=== PATIENT | male | born 1940 | race Caucasian/White ===

== ENCOUNTER 2017-04-19 14:49 | Inpatient (IN) | payer MEDICARE ==
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
--- NOTE | 2017-04-19 17:03 | XR ---
EXAMINATION TYPE: XR abdomen 2V DATE OF EXAM: 04/19/2017 4:55 PM COMPARISON: 03/08/2013 HISTORY: Weakness TECHNIQUE: 2 views FINDINGS: There is a large hiatal hernia with fluid level. Fecal pattern is normal. There is no evide nce of a mass. There is atherosclerotic vascular calcifications. There are no pathologic calcificatio ns over the kidneys. IMPRESSION: Large hiatal hernia. Nonacute abdomen. No change.
[2017-04-19 17:07] LABS: Basophils % (A) 0 %; CH 32.1; CHCM 32.6; Eosinophils % (A) 1 %; HCT 39.9 % (39.0-53.0); HDW 2.33; Luc # (Auto) 0.16; Luc % (Auto) 2; Lymphocytes # (A) 2.2 k/uL (1.0-4.8); Lymphocytes % (A) 31 %; MCH 32.4 pg (25.0-35.0); MCHC 32.7 g/dL (31.0-37.0); MCV 99.1 fL (80.0-100.0); Mean Platelet Volume 6.4; Monocytes # (A) 0.5 k/uL (0-1.0); Monocytes % (A) 8 %; Neutrophils # (A) 4.1 k/uL (1.3-7.7); Neutrophils % (A) 58 %; RBC 4.03 m/uL (4.30-5.90); RDW 13.7 % (11.5-15.5); WBC (Perox) 6.77
[2017-04-19 17:19] LABS: ALT 31 U/L (21-72); AST 25 U/L (17-59); Alkaline Phosphatase 172 U/L (38-126); Anion Gap 9 mmol/L; Blood Urea Nitrogen 24 mg/dL (9-20); Calcium 9.3 mg/dL (8.4-10.2); Carbon Dioxide 25 mmol/L (22-30); Chloride 106 mmol/L (98-107); Glucose 89 mg/dL (74-99); Magnesium 2.2 mg/dL (1.6-2.3); Non-African American GFR(MDRD) 57 (>60 ml/min/1.73 sqM); Potassium 4.7 mmol/L (3.5-5.1); Sodium 140 mmol/L (137-145); Total Bilirubin 0.7 mg/dL (0.2-1.3); Total Protein 7.5 g/dL (6.3-8.2)
[2017-04-19 17:28] LABS: Partial Thromboplastin Time 22.4 sec (22.0-30.0); Prothrombin Time 10.3 sec (9.0-12.0)
[2017-04-19 17:29] LABS: Creatine Kinase 69 U/L (55-170)
[2017-04-19 17:42] LABS: Creatine Kinase MB 1.8 ng/mL (0.0-2.4); Troponin I <0.012 ng/mL (0.000-0.034)
[2017-04-19] MEDS ORDERED: NALOXONE 0.4 MG/ML 1 ML VIAL IV PRN (18:08)
[2017-04-19] MEDS ORDERED: ACETAMINOPHEN TAB 325 MG TAB PO PRN (18:08)
[2017-04-19] MEDS ORDERED: BISMUTH SUBSALICYLATE 4,192 MG/240 ML BOTTLE PO PRN (18:10)
[2017-04-19] MEDS ORDERED: ENALAPRILAT 1.25 MG/ML 1 ML VIAL IVP PRN (19:29)
[2017-04-19] MEDS ORDERED: ENALAPRILAT 1.25 MG/ML 1 ML VIAL IVP STA (19:29)
[2017-04-19 19:46] LABS: Appearance,Urine Cloudy (Clear); Bacteria,Urine Many /hpf; Bilirubin,Urine Negative (Negative); Glucose,Urine (UA) Negative (Negative); Ketones,Urine Negative (Negative); Leukocyte Esterase,Urine Large (Negative); Mucus,Urine Rare /hpf; Nitrite,Urine Negative (Negative); PH, Urine 5.5 (5.0-8.0); Particle Count 6513; Protein,Urine Trace (Negative); RBC,Urine 16 /hpf (0-5); Specific Gravity,Urine 1.012 (1.001-1.035); UA Billing (MACRO vs. MICRO) MICRO; Urobilinogen,Urine <2.0 mg/dL (<2.0); WBC,Urine >182 /hpf (0-5)
[2017-04-19] MEDS ORDERED: cloNIDine HCL 0.1 MG TAB PO PRN (20:44)
[2017-04-19] MEDS ORDERED: ALPRAZolam 0.25 MG TAB PO PRN (20:44)
[2017-04-19 20:46] VITALS: BMI 17.9
[2017-04-19] MEDS ORDERED: LORazepam 2 MG/ML SYRINGE IV PRN (20:46)
[2017-04-19] MEDS: MELATONIN 3 MG TABLET PO SCH (22:36)
[2017-04-19] MEDS: SODIUM CHLORIDE 0.9% 1,000 ML IV SCH (22:44)
[2017-04-19] MEDS: HEPARIN SODIUM,PORCINE 5,000 UNIT/ML 1 ML VIAL SQ SCH (22:44)
--- NOTE | 2017-04-19 23:05 | HP ---
DATE OF SERVICE: 04/19/2017 CHIEF COMPLAINT: Weakness and recurrent falls. HISTORY OF PRESENT ILLNESS: This 76-year-old gentleman with a past medical history of multiple medical issues, including a history of dementia, history of UTIs, history of appendectomy, history of nicotine dependence be followed by Dr. Hernandez in the outpatient setting is complaining of increasing unsteadiness. The patient also had increasing falls recently. The patient also had abdominal distention. The patient had increased frequency of stools and because of multiple symptomatology, patient came to [facility] and was admitted. The patient is being admitted for further evaluation and treatment. There is no history of any fever or rigors. This patient is unable to give any coherent history. Most of the history taken in discussion with the staff and review of the chart and discussion with the family at the bedside. PAST MEDICAL HISTORY: Dementia, UTI, history of appendectomy, history of gait dysfunction. MEDICATIONS: 1. Tylenol 320 mg t.i.d. p.r.n. ALLERGIES: None. Family history, social history, review of systems could not be taken because of the patient's dementia and baseline mental status. Apparently, previous history of alcohol abuse is present, history of smoking. PHYSICAL EXAM: Patient is conscious, minimally verbal. Pulse is 84, blood pressure 199/109, respirations 18, temperature 97.3, pulse ox 98% on room air. HEENT: Conjunctivae normal. NECK: No jugular venous distension. CARDIOVASCULAR: S1 and S2 muffled. No S3. No S4. RESPIRATORY: Breath sounds diminished in the bases. A few scattered rhonchi. No crackles. ABDOMEN: Soft. Mild diffuse distention present. No guarding. No rigidity. Bowel sounds diminished. No ascites. LEGS: No edema. No swelling. NERVOUS SYSTEM: Higher functions as mentioned earlier. Moves all 4 limbs. Mild diffuse weakness, present. LYMPHATIC: No lymphadenopathy in the neck, axillae or groin. SKIN: No ulcer, rash or bleeding. LABS: CBC within normal limits. BUN is 24. Alk phos 172. UA shows more than 182 WBCs. Otherwise, the brain MRI from last year shows moderate cerebral atrophy and opacification of the left mastoid air cells. The abdomen x-ray shows large hiatal hernia. EKG shows ST-T changes, but no acute changes, PVCs. ASSESSMENT: 1. Possible urinary tract infection with sepsis. 2. Change in mental status, metabolic encephalopathy, acute on chronic, possibly secondary to sepsis. 3. Hypertensive urgency. 4. Gait dysfunction. 5. History of multiple falls. Rule out transient ischemic attack or cerebrovascular accident. 6. History of dementia. 7. History of recurrent urinary tract infections. 8. History of appendectomy. 9. History of nicotine dependence. 10. Remote history of ethanol. 11. Severe protein-calorie malnutrition with a body mass index of 18. 12. Abdominal distention, rule out ileus, 13. FULL CODE. RECOMMENDATIONS AND DISCUSSION: In this 76-year-old gentleman who presented with multiple complex medical issues, we will monitor the patient closely. Continue with the current medications, continue symptomatic treatment. Otherwise, I would recommend empiric antibiotics and obtain blood cultures, PT, OT evaluation, full neurovascular workup, neurology consultation. See orders for further details. PT, OT evaluation, possible ECF rehab. Guarded prognosis. Further recommendations to follow. A copy of this dictation will be forwarded to Dr. Hernandez, who is the primary physician. EVELYN
[2017-04-20] MEDS: NICOTINE 14MG/24HR PATCH TRANSDERM SCH (07:26)
[2017-04-20] MEDS: PANTOPRAZOLE 40 MG TABLET PO SCH (07:26)
[2017-04-20] MEDS: SODIUM CHLORIDE 0.9% 1,000 ML IV SCH ×2 (07:26→21:18)
[2017-04-20] MEDS: HEPARIN SODIUM,PORCINE 5,000 UNIT/ML 1 ML VIAL SQ SCH ×2 (07:26→21:18)
[2017-04-20 09:57] LABS: Basophils % (A) 0 %; CHCM 32.5; Eosinophils % (A) 0 %; HDW 2.33; HGB 11.7 gm/dL (13.0-17.5); Luc # (Auto) 0.14; Luc % (Auto) 3; Lymphocytes # (A) 1.6 k/uL (1.0-4.8); Lymphocytes % (A) 29 %; MCH 31.4 pg (25.0-35.0); MCHC 31.7 g/dL (31.0-37.0); MCV 98.8 fL (80.0-100.0); Mean Platelet Volume 6.4; Monocytes # (A) 0.3 k/uL (0-1.0); Monocytes % (A) 6 %; Neutrophils # (A) 3.3 k/uL (1.3-7.7); Neutrophils % (A) 61 %; RBC 3.74 m/uL (4.30-5.90); RDW 13.7 % (11.5-15.5); WBC 5.4 k/uL (3.8-10.6); WBC (Perox) 5.42
[2017-04-20 10:21] LABS: Anion Gap 9 mmol/L; Blood Urea Nitrogen 20 mg/dL (9-20); Calcium 8.9 mg/dL (8.4-10.2); Carbon Dioxide 21 mmol/L (22-30); Chloride 108 mmol/L (98-107); Glucose 100 mg/dL (74-99); Non-African American GFR(MDRD) >60 (>60 ml/min/1.73 sqM); Potassium 4.3 mmol/L (3.5-5.1); Sodium 138 mmol/L (137-145)
[2017-04-20] MEDS: MULTIVITAMINS, THERA 1 EACH TAB PO SCH (10:55)
[2017-04-20] MEDS: THIAMINE 100 MG TAB PO SCH (10:55)
[2017-04-20] MEDS: FOLIC ACID 1 MG TAB PO SCH (10:55)
--- NOTE | 2017-04-20 11:06 | XR ---
EXAMINATION TYPE: XR chest 1V portable DATE OF EXAM: 04/20/2017 10:59 AM COMPARISON: NONE HISTORY: Weakness TECHNIQUE: Single frontal view of the chest is obtained. FINDINGS: Curvature the spine with atherosclerotic change aorta. Heart is enlarged and there is a re trocardiac density likely related to large hiatal hernia. No overt failure or pneumothorax. No consol idation. IMPRESSION: 1. Cardiomegaly with large hiatal hernia.
--- NOTE | 2017-04-20 19:56 | P.CNNES ---
History of Present Illness Consult date: 04/20/17 Reason for Consult: Patient being evaluated for TIA and history of worsening dementia. History of Present Illness: This patient is a 76-year-old right-handed white male who apparently lives at home with his . Over the last several weeks the patient has shown increasing generalized weakness. This is lead to his unsteady gait and multiple falls. Patient appears to be malnourished and is quite weak on appearance. Due to the multiple falls his has been unable to assist him in there is no help at home. She decided to bring him to the emergency room yesterday for further evaluation. Patient was seen in the ER by Dr. Padilla. He was recommended to undergo a computed tomography scan of the brain however the refused to have this test done for the patient at this time. We were able to locate a previous MRI of the brain done on 07/05/2016 which revealed moderate cerebral atrophy. As noted the has been unable to care for him at home due to his multiple falls and worsening dementia. He is now being considered for placement into a long term facility. The patient denies any history of headaches at this time. He states he has not been eating much at home. He does appear to have some swallowing difficulties. We would recommend a speech therapy consultation for the patient for further assessment. The patient was found to have possibility of urinary tract infection and has been started on antibiotics. He does appear to have some evidence of underlying dementia which may be complicated now with a metabolic encephalopathy. We will continue close neurological follow-up with the patient. Patient is a poor historian and is hard to answer questions at this time. We will continue close neurological assessment for this patient and monitoring. His overall prognosis at this time remains very guarded. Neurology is now been consulted for further evaluation and recommendations. Review of Systems Constitutional: Denies chills, Denies fever Eyes: denies blurred vision, denies pain Ears, nose, mouth and throat: Denies headache, Denies sore throat Cardiovascular: Denies chest pain, Denies shortness of breath Respiratory: Denies cough Gastrointestinal: Denies abdominal pain, Denies diarrhea, Denies nausea, Denies vomiting Musculoskeletal: Denies myalgias Integumentary: Denies pruritus, Denies rash Neurological: Reports change in mentation, Reports confusion, Reports memory loss, Denies numbness, Denies weakness Psychiatric: Reports confusion, Reports disorientation, Denies anxiety, Denies depression Endocrine: Denies fatigue, Denies weight change Past Medical History Past Medical History: Dementia Additional Past Medical History / Comment(s): UTI, hepatitis B 40 years ago, non verbal 4 years, colonoscopies, incontinence, diverticulitis, urinary retention History of Any Multi-Drug Resistant Organisms: None Reported Past Surgical History: Appendectomy, Bladder Surgery Past Psychological History: No Psychological Hx Reported Smoking Status: Former smoker Past Alcohol Use History: Abuse Past Drug Use History: None Reported Medications and Allergies Home Medications Medication Instructions Recorded Confirmed Type Acetaminophen Tab [Tylenol Tab] 325 mg PO TID PRN 04/19/17 04/19/17 History Bismuth Subsalicylate 15 mg PO TID PRN 04/19/17 04/19/17 History [Pepto-Bismol] Allergies Allergy/AdvReac Type Severity Reaction Status Date / Time No Known Allergies Allergy Verified 04/19/17 16:27 Physical Examination - Vital Signs Vital Signs: Vital Signs Temp Pulse Pulse Pulse Resp BP BP 04/20/17 15:00 97.7 F 83 20 143/75 04/20/17 07:00 96.9 F L 78 20 142/83 04/19/17 23:00 96.8 F L 86 18 142/76 04/19/17 20:15 97.4 F L 81 18 143/82 04/19/17 19:25 97.3 F L 84 18 191/109 04/19/17 18:34 98.1 F 87 18 181/84 Pulse Ox 04/20/17 15:00 95 04/20/17 07:00 96 04/19/17 23:00 96 04/19/17 20:15 98 04/19/17 19:25 98 04/19/17 18:34 98 Intake and Output 04/20/17 04/20/17 04/20/17 06:59 14:59 22:59 Intake Total 240 Balance 240 Intake: Oral 240 Other: Voiding Method Incontinent Incontinent # Voids 2 2 1 # Bowel Movements 2 1 - Constitutional General appearance: average body habitus, cooperative - EENT EENT: PERRL - Respiratory Respiratory: lungs clear, normal breath sounds - Cardiovascular Cardiovascular: regular rate, normal S1, normal S2 Extremities: no peripheral edema bilaterally - Gastrointestinal Gastrointestinal: normoactive bowel sounds - Integumentary Integumentary: normal - Neurologic Detailed sensory examination: intact Reflex and gait examination: intact Reflexes: 1+: ankle, bicep, knee, tricep - Musculoskeletal Musculoskeletal: no pain - Psychiatric Psychiatric: mood/affect appropriate, cooperative Results - Laboratory Findings CBC and BMP: 04/20/17 09:28 04/20/17 09:28 Abnormal Lab Findings: Abnormal Labs 04/19/17 04/19/17 04/19/17 16:30 16:30 19:20 RBC 4.03 L Hgb Hct Chloride Carbon Dioxide BUN 24 H Glucose Alkaline Phosphatase 172 H Urine Protein Trace H Urine Blood Small H Ur Leukocyte Esterase Large H Urine RBC 16 H Urine WBC >182 H Urine WBC Clumps Moderate H Urine Bacteria Many H Urine Mucus Rare H 04/20/17 04/20/17 09:28 09:28 RBC 3.74 L Hgb 11.7 L Hct 37.0 L Chloride 108 H Carbon Dioxide 21 L BUN Glucose 100 H Alkaline Phosphatase Urine Protein Urine Blood Ur Leukocyte Esterase Urine RBC Urine WBC Urine WBC Clumps Urine Bacteria Urine Mucus Assessment and Plan (1) Acute metabolic encephalopathy Status: Acute Code(s): G93.41 - METABOLIC ENCEPHALOPATHY (2) History of dementia Status: Acute Code(s): Z86.59 - PERSONAL HISTORY OF OTHER MENTAL AND BEHAVIORAL DISORDERS (3) Urinary tract infection Status: Acute Code(s): N39.0 - URINARY TRACT INFECTION, SITE NOT SPECIFIED (4) Multiple falls Status: Acute Code(s): R29.6 - REPEATED FALLS (5) Weakness Status: Acute Code(s): R53.1 - WEAKNESS Plan: This patient is a 76-year-old right-handed white male who was admitted to hospital due to generalized weakness and recurrent falls. His has been unable to care for him as he is having multiple falls and worsening dementia symptoms. He has been admitted for placement into a long term at this time. Patient apparently shows worsening dementia over the last several months. does not want any imaging study done at this time such as computed tomography scan of the brain as she feels this is not going to change his outcome. She refused computed tomography scan of the brain to be done in the emergency room by Dr. Deras. The patient remains quite confused and slow to answer. He does appear to have some difficulty with swallowing and we have recommended a speech therapy consultation. He appears to have some poor nutritional status as well possibly due to swallowing deficit. He is to be evaluated for possibility of TIA versus stroke. This is limited as the has refused to have a computed tomography scan of the brain done today to rule out acute stroke. Apparently she would like to move forward with possible placement of this patient into a long term facility. He may also benefit from inpatient rehab. We will need to see his progress over the next few days. The patient does have evidence of a metabolic encephalopathy secondary to urinary tract infection. We will continue him on his current antibiotics. His overall prognosis at this time remains very guarded. Time with Patient: Greater than 30
--- NOTE | 2017-04-20 20:01 | PN ---
DATE OF SERVICE: 04/20/2017 This 70 -year-old gentleman admitted with weakness multiple falls also had possible urinary tract infection with sepsis also. The patient is still confused. No chest pain. No palpitation. No fever. On exam, pulse 83, blood pressure 143/75. Respiratory rate 20. Temperature 97.7, pulse ox 95% on room air. HEENT: Conjunctivae normal. NECK: No jugular venous distention. CARDIOVASCULAR: S1, S2 muffled. RESPIRATORY: Breath sounds diminished at the bases. A few rhonchi. No crackles. ABDOMEN: Soft, nontender. No mass palpable. LEGS: No edema. No swelling. CENTRAL NERVOUS SYSTEM: Diffusely weak. LABS: WBC 5.5, hemoglobin 11.7. UA noted. Cultures are pending at this time. ASSESSMENT: 1. Possible urinary tract infection with sepsis, present on admission. 2. Change in mental status, metabolic encephalopathy, acute on chronic possibly secondary to sepsis. 3. Hypertensive urgency. 4. Gait dysfunction multifactorial. 5. History of multiple falls. 6. Rule out transient ischemic attack or cerebrovascular accident. 7. History of dementia. 8. History of recurrent urinary tract infections. 9. History of appendectomy. 10. History of nicotine dependence. 11. Remote history of ETOH. 12. Severe protein calorie malnutrition with body mass index of 18. 13. Abdominal distention, possibly ileus. 14. FULL CODE. RECOMMENDATIONS AND DISCUSSION: Recommend to continue current medications. Continue to monitor. Symptomatic treatment. Otherwise, at this time I will recommend follow the patient closely and continue antibiotics. PT, OT evaluation possible ECF rehab. Guarded prognosis. Further recommendations to follow.
[2017-04-20] MEDS: MELATONIN 3 MG TABLET PO SCH (21:18)
[2017-04-21] MEDS: PANTOPRAZOLE 40 MG TABLET PO SCH (07:39)
[2017-04-21] MEDS: HEPARIN SODIUM,PORCINE 5,000 UNIT/ML 1 ML VIAL SQ SCH ×2 (07:39→21:02)
[2017-04-21] MEDS: NICOTINE 14MG/24HR PATCH TRANSDERM SCH (07:39)
[2017-04-21] MEDS: SODIUM CHLORIDE 0.9% 1,000 ML IV SCH ×2 (07:39→21:02)
[2017-04-21 10:33] LABS: Anion Gap 8 mmol/L; Blood Urea Nitrogen 20 mg/dL (9-20); Calcium 9.1 mg/dL (8.4-10.2); Carbon Dioxide 22 mmol/L (22-30); Chloride 109 mmol/L (98-107); Glucose 130 mg/dL (74-99); Non-African American GFR(MDRD) 59 (>60 ml/min/1.73 sqM); Potassium 4.4 mmol/L (3.5-5.1); Sodium 139 mmol/L (137-145)
[2017-04-21 10:38] LABS: Basophils % (A) 0 %; CH 31.7; CHCM 32.2; Eosinophils % (A) 0 %; HCT 38.1 % (39.0-53.0); HDW 2.32; HGB 12.3 gm/dL (13.0-17.5); Luc # (Auto) 0.11; Luc % (Auto) 2; Lymphocytes # (A) 1.5 k/uL (1.0-4.8); Lymphocytes % (A) 26 %; MCH 32.1 pg (25.0-35.0); MCHC 32.4 g/dL (31.0-37.0); Mean Platelet Volume 6.5; Monocytes # (A) 0.4 k/uL (0-1.0); Monocytes % (A) 7 %; Neutrophils # (A) 3.7 k/uL (1.3-7.7); Neutrophils % (A) 65 %; RBC 3.85 m/uL (4.30-5.90); RDW 13.7 % (11.5-15.5); WBC 5.8 k/uL (3.8-10.6); WBC (Perox) 5.54
[2017-04-21] MEDS: THIAMINE 100 MG TAB PO SCH (11:04)
[2017-04-21] MEDS: MULTIVITAMINS, THERA 1 EACH TAB PO SCH (11:05)
[2017-04-21] MEDS: HYDROcodone/APAP 5-325MG 1 EACH TAB PO PRN (11:05)
[2017-04-21] MEDS: FOLIC ACID 1 MG TAB PO SCH (11:05)
--- NOTE | 2017-04-21 20:45 | PN ---
DATE OF SERVICE: 04/21/2017 This 76-year-old gentleman who was admitted with possible UTI and sepsis is being closely monitored. No chest pain. No palpitation. No fever. Sensorium is minimally improved. Patient is more comfortable. On exam, pulse 91, blood pressure 132/74, respiration 16, temperature 96.5, pulse ox 95% on room air. Patient continues to be minimally verbal. HEENT: Oral mucosa moist. NECK: No jugular venous distention. No carotid bruit. No lymph node enlargement. CARDIOVASCULAR SYSTEM: S1, S2 muffled. No S3. No S4. RESPIRATORY SYSTEM: Breath sounds diminished at the bases. No rhonchi. No crackles. ABDOMEN: Soft, non-tender. LEGS: No edema. No swelling. NERVOUS SYSTEM: Diffusely weak. Labs at this time show WBC 5.8, hemoglobin 12.3. ASSESSMENT: 1. Possible urinary tract infection with sepsis, present on admission. 2. Change in mental status, metabolic encephalopathy, acute on chronic, possibly secondary to sepsis. 3. Hypertensive urgency. 4. Gait dysfunction, multifactorial. 5. History of multiple falls. 6. Rule out transient ischemic attack, cerebrovascular accident. 7. History of dementia. 8. History of recurrent urinary tract infection. 9. History of appendectomy. 10. History of nicotine dependence. 11. Remote history of ethanol. 12. Severe protein-calorie malnutrition with a body mass index of 18. 13. Abdominal distention, possible ileus. 14. FULL CODE. RECOMMENDATIONS AND DISCUSSION: I recommend to continue with the current medications, continue with symptomatic treatment. Otherwise, closely follow. Increase ambulation. Continue the antibiotics. Guarded prognosis because of multiple complex medical issues. Further recommendations to follow.
[2017-04-21] MEDS: MELATONIN 3 MG TABLET PO SCH (21:02)
--- NOTE | 2017-04-21 21:35 | P.PN ---
Subjective This patient is a 70-year-old woman who was admitted to Hospital with symptoms of multiple falls and urinary tract infection. Patient has history of underlying dementia. He apparently was living at home with his and his has had great difficulty managing him due to the multiple falls and unsteady gait He appears to be quite malnourished as well. We have awaiting further recommendations from speech pathology. Patient has no significant changes in his neurological findings from yesterday. According to the nursing staff he has remained relatively stable today. He is slightly more interactive with the nursing staff. He underwent a routine EEG today which is reviewed and is moderately slow which would be consistent with a moderate degree of underlying dementia. We will continue close neurological follow-up with the patient. According to the nursing staff social work is helping to make arrangements for ECF placement. His overall prognosis at this time remains guarded. Objective - Vital Signs Vital signs: Vital Signs Temp 96.5 F L 04/21/17 15:00 Pulse 91 04/21/17 15:00 Resp 16 04/21/17 15:00 BP 132/74 04/21/17 15:00 Pulse Ox 95 04/21/17 15:00 Intake & Output 04/21/17 04/21/17 04/22/17 06:59 18:59 06:59 Intake Total 800 Balance 800 Weight 52 kg Intake: Oral 800 Other: Voiding Method Incontinent Incontinent # Voids 2 3 # Bowel Movements 1 1 - Exam Physical examination: PHYSICAL EXAMINATION: Patient is resting comfortably in bed. VITAL SIGNS: Blood pressure is [132/74]. Heart rate is [91]. Respiration is [16] . Temperature is [96.5]. HEENT: Head is atraumatic, neck is supple, there were no carotid bruits. CHEST: Lungs are clear to auscultation and percussion. CARDIAC: S1, S2 normal rate and rhythm. There is no murmur. ABDOMEN: Soft and nontender. Bowel sounds are present. EXTREMITIES: There is no pedal edema. Peripheral pulses are present. Neurological examination: Patient's neurological examinations unchanged from yesterday. - Labs CBC & Chem 7: 04/21/17 09:59 04/21/17 09:59 Labs: Abnormal Lab Results - Last 24 Hours (Table) 04/21/17 04/21/17 Range/Units 09:59 09:59 RBC 3.85 L (4.30-5.90) m/uL Hgb 12.3 L (13.0-17.5) gm/dL Hct 38.1 L (39.0-53.0) % Chloride 109 H (98-107) mmol/L Glucose 130 H (74-99) mg/dL Microbiology - Last 24 Hours (Table) 04/19/17 19:20 Urine Culture - Final Urine,Voided 04/19/17 21:18 Blood Culture - Preliminary Blood No Growth after 24 hours Assessment and Plan (1) Acute metabolic encephalopathy Status: Acute Code(s): G93.41 - METABOLIC ENCEPHALOPATHY (2) History of dementia Status: Acute Code(s): Z86.59 - PERSONAL HISTORY OF OTHER MENTAL AND BEHAVIORAL DISORDERS (3) Urinary tract infection Status: Acute Code(s): N39.0 - URINARY TRACT INFECTION, SITE NOT SPECIFIED (4) Multiple falls Status: Acute Code(s): R29.6 - REPEATED FALLS (5) Weakness Status: Acute Code(s): R53.1 - WEAKNESS Plan: This patient is a 76-year-old male being treated for multiple falls and history of dementia. He was found on admission to have a urinary tract infection possibly contributing to his generalized medical debility and weakness. His has been unable to care for him at home and is now seeking ECF placement. Patient underwent a EEG today which was reviewed and is moderately slow in a diffuse manner. This would be consistent with his known history of dementia. Patient does follow simple commands. He does answer questions but very slowly. We will continue close neurological follow-up of this patient during this admission. His overall prognosis remains guarded.
[2017-04-22 08:29] LABS: Basophils % (A) 0 %; CHCM 33.4; Eosinophils % (A) 1 %; HCT 37.4 % (39.0-53.0); HDW 2.49; HGB 12.2 gm/dL (13.0-17.5); Luc # (Auto) 0.15; Luc % (Auto) 2; Lymphocytes # (A) 2.3 k/uL (1.0-4.8); Lymphocytes % (A) 30 %; MCH 31.4 pg (25.0-35.0); MCHC 32.6 g/dL (31.0-37.0); MCV 96.3 fL (80.0-100.0); Mean Platelet Volume 6.4; Monocytes # (A) 0.4 k/uL (0-1.0); Monocytes % (A) 6 %; Neutrophils # (A) 4.7 k/uL (1.3-7.7); Neutrophils % (A) 61 %; RBC 3.88 m/uL (4.30-5.90); RDW 13.7 % (11.5-15.5); WBC 7.6 k/uL (3.8-10.6); WBC (Perox) 7.79
[2017-04-22 08:51] LABS: Anion Gap 9 mmol/L; Blood Urea Nitrogen 20 mg/dL (9-20); Carbon Dioxide 22 mmol/L (22-30); Chloride 109 mmol/L (98-107); Glucose 103 mg/dL (74-99); Non-African American GFR(MDRD) >60 (>60 ml/min/1.73 sqM); Potassium 4.4 mmol/L (3.5-5.1); Sodium 140 mmol/L (137-145)
--- NOTE | 2017-04-22 08:54 | EEG ---
DATE OF SERVICE: 04/21/2017 INDICATIONS FOR EXAMINATION: This patient is a 76-year-old male with history of dementia. Patient admitted with multiple falls and worsening confusion. AGE: 76Y EEG FINDINGS: A routine 21-channel, awake digital EEG recording was accomplished utilizing the 10 - 20 international system with bipolar and referential montages. The background activity in the most alert resting state consists of a low to medium amplitude, poorly-developed and poorly-sustained 6 Hz activity over the posterior head regions. This posterior rhythm attenuates to eye opening. There is a small amount of low amplitude 18 - 20 Hz beta activity seen maximally over the anterior head regions. Muscle and movement artifact was observed on a few occasions during the tracing. Hyperventilation was not performed. Photic stimulation at flash frequencies of 2 - 30 Hz produced a minimal occipital driving response. No epileptiform discharges were seen. IMPRESSION: This EEG is moderately abnormal in diffuse fashion due to slowing of the EEG background. The EEG failed to reveal any focal, lateralized or epileptiform abnormalities. Clinical correlation is recommended.
[2017-04-22] MEDS: SODIUM CHLORIDE 0.9% 1,000 ML IV SCH ×2 (09:54→20:59)
[2017-04-22] MEDS: PANTOPRAZOLE 40 MG TABLET PO SCH (09:54)
[2017-04-22] MEDS: NICOTINE 14MG/24HR PATCH TRANSDERM SCH (09:55)
[2017-04-22] MEDS: HEPARIN SODIUM,PORCINE 5,000 UNIT/ML 1 ML VIAL SQ SCH ×2 (09:55→20:59)
[2017-04-22] MEDS: FOLIC ACID 1 MG TAB PO SCH (11:50)
[2017-04-22] MEDS: MULTIVITAMINS, THERA 1 EACH TAB PO SCH (11:50)
[2017-04-22] MEDS: THIAMINE 100 MG TAB PO SCH (11:50)
--- NOTE | 2017-04-22 12:30 | XR ---
EXAMINATION TYPE: XR KUB DATE OF EXAM: 04/22/2017 12:10 PM CLINICAL DATA: 76-year-old male with distended abdomen, H COMPARISON: 02/26/2013 FINDINGS: Lung bases are clear. No evidence for free intraperitoneal air. No dilated small bowel or air-fluid levels. Scattered air and stool seen throughout the colon extendi ng distally into the rectum. Mild stool burden. Possible displacement of central bowel loops. There i s moderate stool in the rectum which is distended up to 8.3 cm wide with stool. Phleboliths within the left hemipelvis are unchanged. 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 IMPRESSION: 1. Possible displacement of central bowel loops. Consider ultrasound as initial evaluation such as to rule out ascites, any candida organomegaly, or severe urinary bladder distention. 2. No evidence for free air or bowel obstruction.
[2017-04-22] MEDS: IOHEXOL 350 MG/ML 25 ML BOTTLE (ORAL USE) PO PRN ×2 (15:53→16:50)
--- NOTE | 2017-04-22 16:07 | PN ---
DATE OF SERVICE: 04/22/2017 This 76-year-old gentleman with a past medical history of dementia was admitted with change in mental status and possible UTI, sepsis. Patient is on empiric antibiotics. Patient's sensorium is improving; however, the patient is complaining of progressive abdominal distention. There is no history of vomiting. No nausea. Underwent a plain x-ray KUB that showed possibility of displaced central bowel loops and possible ascites as well; no evidence of bowel obstruction was noted. Past medical history reviewed. Review of systems could not be taken; the patient has significant dementia. Current medications are reviewed which include: 1. Tylenol 650 q.6 p.r.n. 2. [facility] 5 mg q.6 p.r.n. 3. Xanax 0.25 t.i.d. 4. Rocephin 1 gram daily. 5. Catapres. 6. Vasotec. 7. Folic acid. 8. Heparin. 9. Ativan. 10. Melatonin. 11. Multivitamin. 12. Narcan. 13. Habitrol 14. 14. Protonix. 15. Vitamin B1. PHYSICAL EXAM: The patient is minimally verbal. Pulse is 78, blood pressure 150/70, respiration 14, temperature 97.6, pulse ox 96% on room air. HEENT: Conjunctivae normal. NECK: No jugular venous distention. CARDIOVASCULAR SYSTEM: S1, S2 muffled. RESPIRATORY SYSTEM: Breath sounds diminished at the bases. Scattered rhonchi. ABDOMEN: Soft. Mild diffuse distention. No guarding. No rigidity. No mass palpable. No tenderness. No ascites clinically. Bowel sounds normal. LEGS: No edema. No swelling. LABS: WBC 7.6, hemoglobin 12.2. ASSESSMENT: 1. Acute urinary tract infection with sepsis, present on admission. 2. Change in mental status, metabolic encephalopathy, acute on chronic, possibly secondary to sepsis. 3. Abdominal distention. Rule out ileus. 4. Hypertensive urgency, present on admission. 5. Gait dysfunction, multifactorial. 6. History of multiple falls. 7. Rule out transient ischemic attack or cerebrovascular accident. 8. History of dementia. 9. History of recurrent urinary tract infection. 10. History of appendectomy. 11. History of nicotine dependence. 12. Remote history of ETOH. 13. Severe protein-calorie malnutrition with body mass index of 18. 14. Abdominal distention, possible ileus. 15. NO CODE, NO CPR, NO VENT. RECOMMENDATIONS AND DISCUSSION: I recommend to continue with the current medications, continue symptomatic treatment, continue antibiotics. Otherwise, the cultures are negative so far. Continue the rest of the medications. Also recommend surgical evaluation as well as CT scan of the abdomen without any contrast. Further recommendations to follow. Aspiration precautions. Once the patient is stabilized, will consider ECF rehab. Will continue to monitor.
--- NOTE | 2017-04-22 16:10 | P.GSCN ---
History of Present Illness Consult date: 04/22/17 Reason for Consult: Abdominal distention Requesting physician: Marlys Gross History of present illness: Patient is a 76-year-old male, patient of [facility] in the outpatient setting, with medical history significant for dementia, nonverbal 4 years, incontinence, urine retention, and diverticulitis. Surgical history significant for appendectomy and bladder surgery. Most of information is taken from chart as patient is a poor historian. Patient admitted through the emergency department with chief complaint of increased falls and generalized weakness. Family concerned about distended abdomen. Abdominal x-ray positive for large hiatal hernia on 04/19/2017. KUB x-ray on 04/22/2017 with evidence of possible displacement of central bowel loops with no evidence for free air or bowel obstruction. Afebrile. No evidence of leukocytosis. Patient with evidence of urinary tract infection upon admission. This afternoon, patient underwent a bladder scan for post void residual with results greater than 999 ml. Patient was straight catheterizised and 1500 of urine was obtained. Past Medical History Past Medical History: Dementia Additional Past Medical History / Comment(s): UTI, hepatitis B 40 years ago, non verbal 4 years, colonoscopies, incontinence, diverticulitis, urinary retention History of Any Multi-Drug Resistant Organisms: None Reported Past Surgical History: Appendectomy, Bladder Surgery Past Psychological History: No Psychological Hx Reported Smoking Status: Former smoker Past Alcohol Use History: Abuse Past Drug Use History: None Reported Medications and Allergies Home Medications Medication Instructions Recorded Confirmed Type Acetaminophen Tab [Tylenol Tab] 325 mg PO TID PRN 04/19/17 04/19/17 History Bismuth Subsalicylate 15 mg PO TID PRN 04/19/17 04/19/17 History [Pepto-Bismol] Allergies Allergy/AdvReac Type Severity Reaction Status Date / Time No Known Allergies Allergy Verified 04/19/17 16:27 Surgical - Exam Vital Signs Temp Pulse Resp BP Pulse Ox 97.9 F 90 18 177/73 97 04/19/17 15:30 04/19/17 15:30 04/19/17 15:30 04/19/17 15:30 04/19/17 15:30 GENERAL: Pt awake and alert, nonverbal, appears in no acute distress. ENT: Moist mucous membranes. LUNGS: Breath sounds diminished to auscultation bilaterally. No wheezes, rales , or rhonchi. HEART: Heart S1, S2, no S3 or S4. Regular rate and rhythm. No murmurs, rubs or gallops. ABDOMEN: Soft, nontender, distended, normoactive bowel sounds. No guarding, no rebound. No masses or organomegaly appreciated. Results - Labs 04/22/17 07:41 04/22/17 07:41 Abnormal Lab Results - Last 24 Hours (Table) 04/22/17 04/22/17 Range/Units 07:41 07:41 RBC 3.88 L (4.30-5.90) m/uL Hgb 12.2 L (13.0-17.5) gm/dL Hct 37.4 L (39.0-53.0) % Chloride 109 H (98-107) mmol/L Glucose 103 H (74-99) mg/dL Microbiology - Last 24 Hours (Table) 04/19/17 21:18 Blood Culture - Preliminary Blood No Growth after 48 hours Diabetes panel 04/22/17 Range/Units 07:41 Sodium 140 (137-145) mmol/L Potassium 4.4 (3.5-5.1) mmol/L Chloride 109 H (98-107) mmol/L Carbon Dioxide 22 (22-30) mmol/L BUN 20 (9-20) mg/dL Creatinine 1.16 (0.66-1.25) mg/dL Glucose 103 H (74-99) mg/dL Calcium 9.0 (8.4-10.2) mg/dL Calcium panel 04/22/17 Range/Units 07:41 Calcium 9.0 (8.4-10.2) mg/dL Pituitary panel 04/22/17 Range/Units 07:41 Sodium 140 (137-145) mmol/L Potassium 4.4 (3.5-5.1) mmol/L Chloride 109 H (98-107) mmol/L Carbon Dioxide 22 (22-30) mmol/L BUN 20 (9-20) mg/dL Creatinine 1.16 (0.66-1.25) mg/dL Glucose 103 H (74-99) mg/dL Calcium 9.0 (8.4-10.2) mg/dL Adrenal panel 04/22/17 Range/Units 07:41 Sodium 140 (137-145) mmol/L Potassium 4.4 (3.5-5.1) mmol/L Chloride 109 H (98-107) mmol/L Carbon Dioxide 22 (22-30) mmol/L BUN 20 (9-20) mg/dL Creatinine 1.16 (0.66-1.25) mg/dL Glucose 103 H (74-99) mg/dL Calcium 9.0 (8.4-10.2) mg/dL - Imaging Abdominal x-ray: report reviewed Assessment and Plan Plan: Impression: 1. Abdominal distention suspect secondary to urinary retention with no signs of free air or bowel obstruction on KUB x-ray. Plan: Continue to monitor patient. Patient has been scheduled for a CT of the abdomen and pelvis, will await results. Continue to follow with medical management. The above impression and plan have been discussed and directed by Dr. Birmingham. Lillian DE ANDA acting as scribe for Dr. Birmingham.
--- NOTE | 2017-04-22 16:46 | P.PN ---
Subjective This patient is a 70-year-old woman who was admitted to Hospital with symptoms of multiple falls and urinary tract infection. Patient has history of underlying dementia. He apparently was living at home with his and his has had great difficulty managing him due to the multiple falls and unsteady gait He appears to be quite malnourished as well. We have awaiting further recommendations from speech pathology. Patient has no significant changes in his neurological findings from yesterday. According to the nursing staff he has remained relatively stable today. He is slightly more interactive with the nursing staff. He underwent a routine EEG today which is reviewed and is moderately slow which would be consistent with a moderate degree of underlying dementia. We will continue close neurological follow-up with the patient. According to the nursing staff social work is helping to make arrangements for ECF placement. The patient continues have evidence of abdominal distention. A surgical consultation was obtained today. They have scheduled the patient for CT of the abdomen and pelvis for further evaluation. There is also concern for possibility of urinary retention producing bladder distention as well. Patient is resting comfortably and denies any severe pain. Once again he is very slow to respond and is very slow in his actions. We will continue close neurological follow-up for the patient during this admission. His overall prognosis at this time remains guarded. Objective - Vital Signs Vital signs: Vital Signs Temp 97.6 F 04/22/17 07:00 Pulse 78 04/22/17 07:00 Resp 14 04/22/17 07:00 BP 156/78 04/22/17 07:00 Pulse Ox 96 04/22/17 07:00 Intake & Output 04/21/17 04/22/17 04/22/17 18:59 06:59 18:59 Intake Total 400 Balance 400 Weight 52 kg 52 kg Intake: Oral 400 Other: Voiding Method Incontinent Incontinent Incontinent # Voids 3 2 # Bowel Movements 1 - Exam Physical examination: PHYSICAL EXAMINATION: Patient is resting comfortably in bed. VITAL SIGNS: Blood pressure is [121/63]. Heart rate is [80]. Respiration is [20] . Temperature is [97.4]. HEENT: Head is atraumatic, neck is supple, there were no carotid bruits. CHEST: Lungs are clear to auscultation and percussion. CARDIAC: S1, S2 normal rate and rhythm. There is no murmur. ABDOMEN: Soft and nontender. Bowel sounds are present. EXTREMITIES: There is no pedal edema. Peripheral pulses are present. Neurological examination: Patient's neurological examinations unchanged from yesterday. - Labs CBC & Chem 7: 04/22/17 07:41 04/22/17 07:41 Labs: Abnormal Lab Results - Last 24 Hours (Table) 04/22/17 04/22/17 Range/Units 07:41 07:41 RBC 3.88 L (4.30-5.90) m/uL Hgb 12.2 L (13.0-17.5) gm/dL Hct 37.4 L (39.0-53.0) % Chloride 109 H (98-107) mmol/L Glucose 103 H (74-99) mg/dL Microbiology - Last 24 Hours (Table) 04/19/17 21:18 Blood Culture - Preliminary Blood No Growth after 48 hours Assessment and Plan (1) Acute metabolic encephalopathy Status: Acute Code(s): G93.41 - METABOLIC ENCEPHALOPATHY (2) History of dementia Status: Acute Code(s): Z86.59 - PERSONAL HISTORY OF OTHER MENTAL AND BEHAVIORAL DISORDERS (3) Urinary tract infection Status: Acute Code(s): N39.0 - URINARY TRACT INFECTION, SITE NOT SPECIFIED (4) Multiple falls Status: Acute Code(s): R29.6 - REPEATED FALLS (5) Weakness Status: Acute Code(s): R53.1 - WEAKNESS Plan: This patient is a 76-year-old male being treated for multiple falls and history of dementia. He was found on admission to have a urinary tract infection possibly contributing to his generalized medical debility and weakness. His has been unable to care for him at home and is now seeking ECF placement. Patient underwent a EEG today which was reviewed and is moderately slow in a diffuse manner. This would be consistent with his known history of dementia. Patient does follow simple commands. He does answer questions but very slowly. Patient continues to have evidence of abdominal distention. A surgery consultation was obtained today. A computed tomography scan of the abdomen and pelvis has been ordered and we will await those results. He is also being considered for bladder distention. Patient's neurological exam findings are unchanged today. We will continue to follow his progress closely during this admission. We will continue close neurological follow-up of this patient during this admission. His overall prognosis remains guarded.
--- NOTE | 2017-04-22 18:11 | CT ---
EXAMINATION TYPE: CT abdomen pelvis wo con DATE OF EXAM: 04/22/2017 5:51 PM COMPARISON: NONE HISTORY: Patient poor historian. Abdominal distension. CT DLP: 281.4 mGycm Automated exposure control for dose reduction was used. TECHNIQUE: Helical acquisition of images was performed from the lung bases through the pelvis. FINDINGS: There is a large hiatal hernia. There are small bilateral pleural effusions. There is no pericardial effusion. Liver shows no focal defect. Bile ducts are not dilated. Gallbladder appears normal. Spleen appears n ormal. There is no sign of a pancreatic mass. There is bilateral hydronephrosis. Ureters are not well visualized. There is a markedly dilated urina ry bladder which extends up to L2 vertebra. Bladder measures 24 cm in length. There is calcified prostate gland. There is some retained fecal material in the rectum. I see no sign of a mechanical bowel obstruction. There is 25% compression deformity of L4 vertebral body. IMPRESSION: THERE IS MARKEDLY DILATED URINARY BLADDER CONSISTENT WITH CHRONIC BLADDER OUTLET OBSTRUCTION. ENLARGE D CALCIFIED PROSTATE. BILATERAL HYDRONEPHROSIS PROBABLY DUE TO BLADDER OBSTRUCTION. L4 COMPRESSION FRACTURE OF UNCERTAIN AGE. LARGE HIATAL HERNIA. SMALL BILATERAL PLEURAL EFFUSIONS. MILD RECTAL FECAL IMPACTION.
[2017-04-22] MEDS: MELATONIN 3 MG TABLET PO SCH (20:59)
[2017-04-22] MEDS: HYDROcodone/APAP 5-325MG 1 EACH TAB PO PRN (22:59)
[2017-04-23 07:39] VITALS: BP 125/65; PULSE 77; RESP 16; TEMP 97.9
[2017-04-23 08:02] LABS: Basophils % (A) 0 %; CH 31.2; Eosinophils # (A) 0.1 k/uL (0-0.7); Eosinophils % (A) 1 %; HCT 36.2 % (39.0-53.0); HDW 2.35; HGB 11.4 gm/dL (13.0-17.5); Luc % (Auto) 2; Lymphocytes # (A) 1.3 k/uL (1.0-4.8); Lymphocytes % (A) 22 %; MCHC 31.6 g/dL (31.0-37.0); MCV 98.2 fL (80.0-100.0); Mean Platelet Volume 6.5; Monocytes # (A) 0.3 k/uL (0-1.0); Monocytes % (A) 4 %; Neutrophils # (A) 4.2 k/uL (1.3-7.7); Neutrophils % (A) 71 %; RBC 3.69 m/uL (4.30-5.90); RDW 13.7 % (11.5-15.5); WBC 5.9 k/uL (3.8-10.6); WBC (Perox) 6.23
[2017-04-23] MEDS ORDERED: TAMSULOSIN 0.4 MG CAP.ER.24H PO SCH (08:30)
[2017-04-23 08:39] LABS: Anion Gap 7 mmol/L; Blood Urea Nitrogen 15 mg/dL (9-20); Calcium 8.3 mg/dL (8.4-10.2); Carbon Dioxide 22 mmol/L (22-30); Chloride 109 mmol/L (98-107); Glucose 93 mg/dL (74-99); Non-African American GFR(MDRD) >60 (>60 ml/min/1.73 sqM); Potassium 4.1 mmol/L (3.5-5.1); Sodium 138 mmol/L (137-145)
[2017-04-23] MEDS: HEPARIN SODIUM,PORCINE 5,000 UNIT/ML 1 ML VIAL SQ SCH (08:57)
[2017-04-23] MEDS: PANTOPRAZOLE 40 MG TABLET PO SCH (08:57)
[2017-04-23] MEDS: NICOTINE 14MG/24HR PATCH TRANSDERM SCH (08:58)
[2017-04-23] MEDS: SODIUM CHLORIDE 0.9% 1,000 ML IV SCH (08:58)
--- NOTE | 2017-04-23 10:25 | P.PN ---
Progress Note - Text The patient is resting comfortably in bed. He has no complaints. On exam is lesser stable. His abdomen soft. Urinary retention resolved with Thakur catheter. No surgical intervention is planned.
[2017-04-23] MEDS: FOLIC ACID 1 MG TAB PO SCH (12:18)
[2017-04-23] MEDS: MULTIVITAMINS, THERA 1 EACH TAB PO SCH (12:19)
[2017-04-23] MEDS: THIAMINE 100 MG TAB PO SCH (12:21)
--- NOTE | 2017-04-23 13:21 | P.GSCN ---
History of Present Illness Consult date: 04/23/17 Reason for Consult: Urine retention History of present illness: The patient is a 76-year-old gentleman with progressive dementia who is in the hospital for increasing falls. He is found to be in urine retention with over a liter of urine in his bladder. Really there is been some infection. We are asked to see the patient. The patient cannot communicate. History of strictly from the chart. Review of Systems ROS unobtainable: due to mental status Past Medical History Past Medical History: Dementia Additional Past Medical History / Comment(s): UTI, hepatitis B 40 years ago, non verbal 4 years, colonoscopies, incontinence, diverticulitis, urinary retention History of Any Multi-Drug Resistant Organisms: None Reported Past Surgical History: Appendectomy, Bladder Surgery Past Psychological History: No Psychological Hx Reported Smoking Status: Former smoker Past Alcohol Use History: Abuse Past Drug Use History: None Reported Medications and Allergies Home Medications Medication Instructions Recorded Confirmed Type Acetaminophen Tab [Tylenol Tab] 325 mg PO TID PRN 04/19/17 04/19/17 History Bismuth Subsalicylate 15 mg PO TID PRN 04/19/17 04/19/17 History [Pepto-Bismol] Allergies Allergy/AdvReac Type Severity Reaction Status Date / Time No Known Allergies Allergy Verified 04/19/17 16:27 Surgical - Exam Vital Signs Temp Pulse Resp BP Pulse Ox 97.9 F 90 18 177/73 97 04/19/17 15:30 04/19/17 15:30 04/19/17 15:30 04/19/17 15:30 04/19/17 15:30 - General well developed - Eyes PERRL - Respiratory normal expansion, normal respiratory effort - Cardiovascular Rhythm: regular - Abdomen Abdomen: soft, non tender - Genitourinary Indwelling catheter, circumcised, prostate 20 g benign, large volume of stool in rectum - Neurologic disoriented, confused Results - Labs 04/23/17 07:25 04/23/17 07:25 Abnormal Lab Results - Last 24 Hours (Table) 04/23/17 04/23/17 Range/Units 07:25 07:25 RBC 3.69 L (4.30-5.90) m/uL Hgb 11.4 L (13.0-17.5) gm/dL Hct 36.2 L (39.0-53.0) % Chloride 109 H (98-107) mmol/L Calcium 8.3 L (8.4-10.2) mg/dL Microbiology - Last 24 Hours (Table) 04/19/17 21:18 Blood Culture - Preliminary Blood No Growth after 72 hours Diabetes panel 04/23/17 Range/Units 07:25 Sodium 138 (137-145) mmol/L Potassium 4.1 (3.5-5.1) mmol/L Chloride 109 H (98-107) mmol/L Carbon Dioxide 22 (22-30) mmol/L BUN 15 (9-20) mg/dL Creatinine 1.03 (0.66-1.25) mg/dL Glucose 93 (74-99) mg/dL Calcium 8.3 L (8.4-10.2) mg/dL Calcium panel 04/23/17 Range/Units 07:25 Calcium 8.3 L (8.4-10.2) mg/dL Pituitary panel 04/23/17 Range/Units 07:25 Sodium 138 (137-145) mmol/L Potassium 4.1 (3.5-5.1) mmol/L Chloride 109 H (98-107) mmol/L Carbon Dioxide 22 (22-30) mmol/L BUN 15 (9-20) mg/dL Creatinine 1.03 (0.66-1.25) mg/dL Glucose 93 (74-99) mg/dL Calcium 8.3 L (8.4-10.2) mg/dL Adrenal panel 04/23/17 Range/Units 07:25 Sodium 138 (137-145) mmol/L Potassium 4.1 (3.5-5.1) mmol/L Chloride 109 H (98-107) mmol/L Carbon Dioxide 22 (22-30) mmol/L BUN 15 (9-20) mg/dL Creatinine 1.03 (0.66-1.25) mg/dL Glucose 93 (74-99) mg/dL Calcium 8.3 L (8.4-10.2) mg/dL Assessment and Plan Plan: Impression: Confusion with advanced dementia. Urine retention with urinary infection. Constipation. Medical issues. Recommendation: The patient is on tamsulosin. He needs to have his bowels evacuated. Once his urine infection is treated a voiding trial would be appropriate.
--- NOTE | 2017-04-23 14:09 | DS ---
DATE OF ADMISSION: 04/19/2017 DATE OF DISCHARGE: FINAL DIAGNOSES: 1. Urinary tract infection with sepsis, present on admission. 2. Change in mental status, metabolic encephalopathy, acute on chronic possibly secondary to sepsis. 3. Abdominal distention, possibly secondary to urinary bladder distention. 4. Urinary outlet obstruction, possibly benign prostatic hypertrophy. 5. Hypertensive urgency, present on admission, improved. 6. Gait dysfunction, multifactorial. 7. History of multiple falls. 8. History of dementia. 9. Cerebrovascular accident and transient ischemic attack ruled out. 10. History of recurrent urinary tract infections. 11. History of appendectomy. 12. History of nicotine dependence. 13. Remote history of EtOH. 14. Severe protein calorie malnutrition with body mass index 18. 15. NO CODE, NO CPR, NO VENT. 16. Indwelling Thakur catheter. DISCHARGE DISPOSITION: The patient will be discharged in stable condition with guarded prognosis. Total time taken 35 minutes. The patient will be transferred to [facility]. HISTORY OF PRESENT ILLNESS: This 76-year-old gentleman with a past medical history of multiple medical problems admitted with UTI with sepsis and change in mental status. Patient treated with antibiotics and improved significantly. Cultures are negative. The patient also had abdominal distention, was found to be secondary to bladder distention secondary to outlet obstruction. The patient had a Thakur catheter, which was draining significantly at this time. The blood pressure normalized. On exam, vitals are stable. CARDIOVASCULAR SYSTEM: S1, S2 muffled. ABDOMEN: Soft. NERVOUS SYSTEM: and no focal deficit. At this time, the patient will be discharged to [facility] with a Thakur catheter and Flomax and catheter may be removed in 7 to 10 days and urology consultation may be sought on a p.r.n. basis if the outlet obstruction persists. Otherwise, discharge advice: 1. Diet is cardiac. 2. Activity limited until followup. 3. Follow up with Dr. Bob in 1 to 2 weeks after discharge from [facility]. 4. Follow up with Dr. Nogueira in ECF. 5. CBC and BMP in 2 to 3 days with ECF. Medications will be as follows: 1. Tylenol 325 mg p.o. t.i.d. p.r.n. 2. Bismuth 15 mg t.i.d. p.r.n. 3. Ceftin 250 mg p.o. qid for 4 days. 4. Folic acid 1 mg daily. 5. [place] 5 mg q.6 p.r.n. for pain. 6. Multivitamin 1 p.o. daily. 7. Habitrol 14 daily. 8. Protonix 40 mg daily. 9. Flomax 0.4 daily. 10. Vitamin B-1, 100 mg p.o. daily. MTDD
--- NOTE | 2017-04-23 16:03 | P.PN ---
Subjective This patient is a 70-year-old male who was admitted to Hospital with symptoms of multiple falls and urinary tract infection. Patient has history of underlying dementia. He apparently was living at home with his and his has had great difficulty managing him due to the multiple falls and unsteady gait He appears to be quite malnourished as well. We have awaiting further recommendations from speech pathology. Patient has no significant changes in his neurological findings from yesterday. According to the nursing staff he has remained relatively stable today. He is slightly more interactive with the nursing staff. He underwent a routine EEG today which is reviewed and is moderately slow which would be consistent with a moderate degree of underlying dementia. We will continue close neurological follow-up with the patient. According to the nursing staff social work is helping to make arrangements for ECF placement. The patient continues have evidence of abdominal distention. A surgical consultation was obtained today. They have scheduled the patient for CT of the abdomen and pelvis for further evaluation. There is also concern for possibility of urinary retention producing bladder distention as well. Patient was seen by urology today due to urinary retention. He had urinary retention of over 1 L of urine in his bladder. Patient is to continue on his Tamsulosin as per the recommendation of urology. He needs to have his bowels evacuated and his urinary tract infection treated at which time a voiding trial would be recommended. Patient is being considered for discharge to a ECF possibly later today. Patient is resting comfortably and denies any severe pain. Once again he is very slow to respond and is very slow in his actions. We will continue close neurological follow-up for the patient during this admission. His overall prognosis at this time remains guarded. Objective - Vital Signs Vital signs: Vital Signs Temp 97.9 F 04/23/17 07:00 Pulse 77 04/23/17 07:00 Resp 16 04/23/17 07:00 BP 125/65 04/23/17 07:00 Pulse Ox 96 04/23/17 07:00 Intake & Output 04/22/17 04/23/17 04/23/17 18:59 06:59 18:59 Output Total 2700 1000 3100 Balance -2700 -1000 -3100 Weight 52 kg Output: Urine 2700 1000 3100 Straight 1500 Uretheral (Thakur) 1200 Other: Voiding Method Incontinent Incontinent # Voids 3 # Bowel Movements 1 - Exam Physical examination: PHYSICAL EXAMINATION: Patient is resting comfortably in bed. VITAL SIGNS: Blood pressure is [125/65]. Heart rate is [77]. Respiration is [16] . Temperature is [97.9]. HEENT: Head is atraumatic, neck is supple, there were no carotid bruits. CHEST: Lungs are clear to auscultation and percussion. CARDIAC: S1, S2 normal rate and rhythm. There is no murmur. ABDOMEN: Soft and nontender. Bowel sounds are present. EXTREMITIES: There is no pedal edema. Peripheral pulses are present. Neurological examination: Patient's neurological examinations unchanged from yesterday. - Labs CBC & Chem 7: 04/23/17 07:25 04/23/17 07:25 Labs: Abnormal Lab Results - Last 24 Hours (Table) 04/23/17 04/23/17 Range/Units 07:25 07:25 RBC 3.69 L (4.30-5.90) m/uL Hgb 11.4 L (13.0-17.5) gm/dL Hct 36.2 L (39.0-53.0) % Chloride 109 H (98-107) mmol/L Calcium 8.3 L (8.4-10.2) mg/dL Microbiology - Last 24 Hours (Table) 04/19/17 21:18 Blood Culture - Preliminary Blood No Growth after 72 hours Assessment and Plan (1) Acute metabolic encephalopathy Status: Acute Code(s): G93.41 - METABOLIC ENCEPHALOPATHY (2) History of dementia Status: Acute Code(s): Z86.59 - PERSONAL HISTORY OF OTHER MENTAL AND BEHAVIORAL DISORDERS (3) Urinary tract infection Status: Acute Code(s): N39.0 - URINARY TRACT INFECTION, SITE NOT SPECIFIED (4) Multiple falls Status: Acute Code(s): R29.6 - REPEATED FALLS (5) Weakness Status: Acute Code(s): R53.1 - WEAKNESS Plan: This patient is a 76-year-old gentleman who was admitted hospital due to recurrent falls and history of worsening dementia. He is being considered for ECF placement due to his worsening overall general medical health. He was seen by urology today for treatment of urinary retention. Patient has no other new changes and is being considered for transfer to ECF 1 bed is available. His overall cognitive function remains poor as he does have advanced dementia. We will continue to follow his progress closely during this admission. His overall prognosis at this time remains very guarded.
== END 2017-04-23 16:41 | DRG 871 ==
LOC: EC 14:49 → 4MS4W 19:11
PROVIDERS: ADMIT Internal Medicine; ATTEND Internal Medicine
DX: A41.9 Sepsis, unspecified organism (principal); G93.41 Metabolic encephalopathy; E43 Unspecified severe protein-calorie malnutrition; N39.0 Urinary tract infection, site not specified; Z68.1 Body mass index [BMI] 19.9 or less, adult; R13.10 Dysphagia, unspecified; N13.9 Obstructive and reflux uropathy, unspecified; F03.90 Unspecified dementia, unspecified severity, without behavioral disturbance, psychotic disturbance, mood disturbance, and anxiety; R29.6 Repeated falls; R26.81 Unsteadiness on feet; K44.9 Diaphragmatic hernia without obstruction or gangrene; K59.00 Constipation, unspecified; I16.0 Hypertensive urgency; Z91.81 History of falling; Z87.440 Personal history of urinary (tract) infections; Z90.49 Acquired absence of other specified parts of digestive tract; Z87.891 Personal history of nicotine dependence; Z86.19 Personal history of other infectious and parasitic diseases; Z79.899 Other long term (current) drug therapy
CPT/HCPCS: 36415; 71010; 74000; 74020; 74176; 80048; 80053; 81001; 82550; 82553; 83605; 83735; 84484; 85025; 85610; 85730; 87040; 87086; 93005; 95816

== ENCOUNTER 2017-04-26 16:14 | Emergency (ER) | payer MEDICARE ==
[2017-04-26 16:20] VITALS: BP 141/65; PULSE 102; RESP 20; TEMP 97.7
--- NOTE | 2017-04-26 17:00 | ED ---
Recheck HPI - General Chief Complaint: Recheck/Abnormal Lab/Rx Stated Complaint: Needs catherer removed Time Seen by Provider: 04/26/17 16:29 Source: family, RN notes reviewed Mode of arrival: wheelchair Limitations: altered mental status, physical limitation - History of Present Illness Initial Comments: Patient is a 76-year-old male presents emergency room for Thakur catheter removal. Patient's is present with patient. Patient's states patient has a history of dementia. Patient's states the patient was admitted here a few days ago for dementia, increased falls and urinary tract infection. Patient's states that patient was given a Thakur catheter. Patient's states they do not know who ordered the Thakur catheter. Patient' s mother states that patient keeps pulling at the Thakur catheter and she is afraid that patient is going to rip it out and cause damage. Patient's states she does not know who to follow up with to get removed so she came to the emergency room. Patient's states that she would like the Thakur catheter removed right away. Patient's states the patient is still producing urine and denies any blood or discoloration of the urine. - Related Data Home Medications Medication Instructions Recorded Confirmed HYDROcodone/APAP 5-325MG [[place] 1 tab PO Q6HR PRN 04/26/17 04/26/17 5-325] Multivitamins, Thera [Multivitamin 1 tab PO DAILY@1200 04/26/17 04/26/17 (formulary)] Previous Rx's Medication Instructions Recorded Cefuroxime [Ceftin] 250 mg PO BID #8 tablet 04/23/17 Folic Acid 1 mg PO DAILY@1200 tab 04/23/17 Nicotine 14Mg/24Hr Patch [Habitrol] 1 patch TRANSDERM DAILY patch 04/23/17 Pantoprazole [Protonix] 40 mg PO AC-BRKFST tab 04/23/17 Tamsulosin [Flomax] 0.4 mg PO PC-BRKFST cap 04/23/17 Thiamine [Vitamin B-1] 100 mg PO DAILY@1200 tab 04/23/17 Sulfamethox-Tmp 800-160Mg [Bactrim 1 tab PO Q12HR 5 Days 04/26/17 DS 800-160 mg] Tamsulosin HCl [Flomax] 0.4 mg PO DAILY #10 cap 04/26/17 Allergies Allergy/AdvReac Type Severity Reaction Status Date / Time No Known Allergies Allergy Verified 04/26/17 16:32 Review of Systems ROS Statement: Those systems with pertinent positive or pertinent negative responses have been documented in the HPI. ROS Other: All systems not noted in ROS Statement are negative. Past Medical History Past Medical History: Dementia Additional Past Medical History / Comment(s): UTI, hepatitis B 40 years ago, non verbal 4 years, colonoscopies, incontinence, diverticulitis, urinary retention History of Any Multi-Drug Resistant Organisms: None Reported Past Surgical History: Appendectomy, Bladder Surgery Past Psychological History: No Psychological Hx Reported Smoking Status: Former smoker Past Alcohol Use History: Abuse Past Drug Use History: None Reported General Exam - General Exam Comments Initial Comments: Sitting in exam room, no acute distress. Limitations: altered mental status, physical limitation General appearance: alert Head exam: Present: atraumatic, normocephalic, normal inspection Eye exam: Present: normal appearance ENT exam: Present: normal exam Neck exam: Present: normal inspection Respiratory exam: Present: normal lung sounds bilaterally. Absent: respiratory distress Cardiovascular Exam: Present: regular rate, normal rhythm, normal heart sounds GI/Abdominal exam: Present: soft, normal bowel sounds. Absent: distended, tenderness, guarding, rebound, rigid exam: Present: other (Thakur catheter in place. No surrounding erythema at the urethral opening. No bleeding noted.) Extremities exam: Present: normal inspection Back exam: Present: normal inspection Neurological exam: Present: alert Psychiatric exam: Present: normal affect Skin exam: Present: warm, dry, intact, normal color. Absent: rash Course Vital Signs 04/26/17 16:16 Temperature 97.7 F Pulse Rate 102 H Respiratory 20 Rate Blood Pressure 141/65 O2 Sat by Pulse 98 Oximetry Medical Decision Making - Medical Decision Making Patient is 76-year-old male sitting sitting for catheter removal. According to records, Dr. Longoria initiated Thakur catheter due to urinary retention. This was explained patient's . Patient's states she still wants the Thakur catheter removed and she will follow up with Dr. Longoria this week. I did explain patient's risk of urinary retention. I did explain to patient's that if patient does not urinate within next few hours to immediately come back to the emergency room for replacement of Thakur catheter. Patient does appear to still have a small urinary tract infection. Will place patient on antibiotics. Patient's states that she will call urology office tomorrow morning. Case discussed with Dr. Mireles. - Lab Data Lab Results 04/26/17 Range/Units 17:06 Urine Color Yellow Urine Appearance Clear (Clear) Urine pH 5.0 (5.0-8.0) Ur Specific [place] 1.017 (1.001-1.035) Urine Protein 1+ H (Negative) Urine Glucose (UA) Trace H (Negative) Urine Ketones Negative (Negative) Urine Blood Small H (Negative) Urine Nitrite Negative (Negative) Urine Bilirubin Negative (Negative) Urine Urobilinogen <2.0 (<2.0) mg/dL Ur Leukocyte Esterase Moderate H (Negative) Urine RBC 5 (0-5) /hpf Urine WBC 11 H (0-5) /hpf Ur Squamous Epith Cells <1 (0-4) /hpf Urine Mucus Rare H (None) /hpf Disposition Clinical Impression: Urinary tract infection, Encounter for Thakur catheter removal Disposition: HOME SELF-CARE Condition: Good Instructions: Urinary Tract Infection in Men (ED) Additional Instructions: Give antibiotics as directed. Give Flomax as directed. Please follow-up with urologist. If patient is not urinating, please return to the emergency room as soon as possible. Prescriptions: Sulfamethox-Tmp 800-160Mg [Bactrim DS 800-160 mg] 1 tab PO Q12HR 5 Days Tamsulosin HCl [Flomax] 0.4 mg PO DAILY #10 cap Referrals: Marisel Bob DO [Primary Care Provider] - 1-2 days Surya Longoria MD [STAFF PHYSICIAN] - 1-2 days Time of Disposition: 17:28
[2017-04-26 17:20] LABS: Appearance,Urine Clear (Clear); Bilirubin,Urine Negative (Negative); Glucose,Urine (UA) Trace (Negative); Ketones,Urine Negative (Negative); Leukocyte Esterase,Urine Moderate (Negative); Mucus,Urine Rare /hpf; Nitrite,Urine Negative (Negative); Particle Count 2617; Protein,Urine 1+ (Negative); RBC,Urine 5 /hpf (0-5); Specific Gravity,Urine 1.017 (1.001-1.035); Squamous Epithelial Cell,Urine <1 /hpf (0-4); UA Billing (MACRO vs. MICRO) MICRO; Urobilinogen,Urine <2.0 mg/dL (<2.0); WBC,Urine 11 /hpf (0-5)
== END 2017-04-26 17:48 | disposition home or self-care (01) ==
LOC: EC 16:14
DX: N39.0 Urinary tract infection, site not specified (principal); Z46.6 Encounter for fitting and adjustment of urinary device; F03.90 Unspecified dementia, unspecified severity, without behavioral disturbance, psychotic disturbance, mood disturbance, and anxiety; Z87.891 Personal history of nicotine dependence; Z79.899 Other long term (current) drug therapy
CPT/HCPCS: 81001; 99283

== ENCOUNTER 2017-04-27 10:14 | Emergency (ER) | payer MEDICARE ==
--- NOTE | 2017-04-27 10:45 | ED ---
Male Urogenital HPI - General Chief complaint: Urogenital Stated complaint: needs catheter Time Seen by Provider: 04/27/17 10:31 Source: patient, RN notes reviewed Mode of arrival: wheelchair Limitations: altered mental status, physical limitation - History of Present Illness Initial comments: Patient is a 76-year-old male presents to the emergency room for evaluation of urinary retention. Patient was here yesterday to have the Akins catheter removed. Patient's states that patient has not urinated since discharge yesterday and needs the Akins catheter placed back in. - Related Data Home Medications Medication Instructions Recorded Confirmed HYDROcodone/APAP 5-325MG [[place] 1 tab PO Q6HR PRN 04/26/17 04/27/17 5-325] Multivitamins, Thera [Multivitamin 1 tab PO DAILY@1200 04/26/17 04/27/17 (formulary)] Previous Rx's Medication Instructions Recorded Folic Acid 1 mg PO DAILY@1200 tab 04/23/17 Nicotine 14Mg/24Hr Patch [Habitrol] 1 patch TRANSDERM DAILY patch 04/23/17 Pantoprazole [Protonix] 40 mg PO AC-BRKFST tab 04/23/17 Tamsulosin [Flomax] 0.4 mg PO PC-BRKFST cap 04/23/17 Thiamine [Vitamin B-1] 100 mg PO DAILY@1200 tab 04/23/17 Sulfamethox-Tmp 800-160Mg [Bactrim 1 tab PO Q12HR 5 Days 04/26/17 DS 800-160 mg] Tamsulosin HCl [Flomax] 0.4 mg PO DAILY #10 cap 04/26/17 Allergies Allergy/AdvReac Type Severity Reaction Status Date / Time No Known Allergies Allergy Verified 04/27/17 10:31 Review of Systems ROS Statement: Those systems with pertinent positive or pertinent negative responses have been documented in the HPI. ROS Other: All systems not noted in ROS Statement are negative. Past Medical History Past Medical History: Dementia Additional Past Medical History / Comment(s): UTI, hepatitis B 40 years ago, non verbal 4 years, colonoscopies, incontinence, diverticulitis, urinary retention History of Any Multi-Drug Resistant Organisms: None Reported Past Surgical History: Appendectomy, Bladder Surgery Past Psychological History: No Psychological Hx Reported Smoking Status: Former smoker Past Alcohol Use History: Abuse Past Drug Use History: None Reported General Exam - General Exam Comments Initial Comments: laying in exam room, no acute distress. Limitations: altered mental status, physical limitation General appearance: alert, in no apparent distress Head exam: Present: atraumatic, normocephalic, normal inspection Eye exam: Present: normal appearance ENT exam: Present: normal exam Neck exam: Present: normal inspection Respiratory exam: Present: normal lung sounds bilaterally. Absent: respiratory distress Cardiovascular Exam: Present: normal rhythm, tachycardia, normal heart sounds Extremities exam: Present: normal inspection Back exam: Present: normal inspection Neurological exam: Present: alert Psychiatric exam: Present: normal affect Skin exam: Present: warm, dry, intact, normal color. Absent: rash Course Vital Signs 04/27/17 10:23 Temperature 98.3 F Pulse Rate 105 H Respiratory 20 Rate Blood Pressure 134/64 O2 Sat by Pulse 97 Oximetry Medical Decision Making - Medical Decision Making Patient is a 76-year-old male presents to the emergency room for evaluation of urinary retention. Patient originally had a Akins catheter placed by Dr. Longoria for urinary retention. Patient's demanded that the Akins catheter be taken out yesterday. patient's states patient has not urinated since akins catheter was taken out. bladder scan showed 201-300 mL and bladder. Akins catheter was placed. patient's states they are going to follow-up with Dr. Longoria today. Return parameters discussed. Case discussed Dr. Deras. Disposition Clinical Impression: Encounter for Akins catheter replacement, Urinary retention Disposition: HOME SELF-CARE Condition: Good Instructions: Urinary Retention in Men (ED) Additional Instructions: Please follow-up with urologist. If any new symptom arises or symptoms worsen, return to ER as soon as possible. Referrals: Marisel Bob DO [Primary Care Provider] - 1-2 days Surya Longoria MD [STAFF PHYSICIAN] - 1-2 days Time of Disposition: 11:19
[2017-04-27 11:32] VITALS: BP 109/55; PULSE 89; RESP 16; TEMP 98.2
== END 2017-04-27 11:40 | disposition home or self-care (01) ==
LOC: EC 10:14
DX: R33.9 Retention of urine, unspecified (principal); Z46.6 Encounter for fitting and adjustment of urinary device; Z87.891 Personal history of nicotine dependence; Z79.899 Other long term (current) drug therapy; Z87.440 Personal history of urinary (tract) infections; Z98.890 Other specified postprocedural states
CPT/HCPCS: 51702; 51798; 99283

== ENCOUNTER 2017-05-05 11:19 | Emergency (ER) | payer MEDICARE ==
--- NOTE | 2017-05-05 13:06 | XR ---
EXAMINATION TYPE: XR KUB DATE OF EXAM: 05/05/2017 CLINICAL HISTORY: Constipation for 10 days per caregiver. TECHNIQUE: Single supine KUB image of the abdomen is obtained. COMPARISON: CT abdomen and pelvis as well as abdominal x-ray April 22, 2017. FINDINGS: Scattered gas is seen in non-distended small bowel loops. Gas and fecal material is seen in non-distended colon. Amount of fecal material in colon is not significantly prominent. Rounded den sities in the left pelvis may reflect nonabsorptive ingested pills. Phleboliths are seen inferior to this. Lung bases are clear. Hiatal hernia is present. Osseous structures are demineralized. Moderate to advanced joint space loss in both hips is redemonstrated. IMPRESSION: Overall nonobstructive bowel gas pattern.
--- NOTE | 2017-05-05 14:12 | ED ---
Abdominal Pain HPI - General Chief Complaint: Abdominal Pain Stated Complaint: Bowel impaction Time Seen by Provider: 05/05/17 11:50 Source: family Mode of arrival: wheelchair Limitations: altered mental status, physical limitation - History of Present Illness Initial Comments: The patient is a 68-year-old male who presents to the ED with a chief complaint of constipation. Patient is accompanied by several family members who are concerned that he has not had a bowel movement over the course the past 4 days. They are eager to try to figure out a solution as to why the patient is not having bowel movements on a regular basis. They state that they went to go see the patient's urologist earlier today where a rectal exam was performed that demonstrated no evidence of stool in the rectal vault. The patient does have a history of prostatic hypertrophy. He also has history of urinary retention for which he has a Thakur catheter in place. The patient has been receiving Dulcolax by mouth as well as Colace without relief of his symptoms. The patient 's daughter states that he has had a decreased intake of water over the course in the past several weeks. The patient does not have any history of bowel obstruction. Patient does not have any history of fevers or chills. - Related Data Home Medications Medication Instructions Recorded Confirmed Acetaminophen [Tylenol] 650 mg PO DAILY PRN 05/05/17 05/05/17 Docusate [Colace] 100 mg PO DAILY PRN 05/05/17 05/05/17 Simethicone [Gas-X] 125 mg PO DAILY PRN 05/05/17 05/05/17 Previous Rx's Medication Instructions Recorded Tamsulosin HCl [Flomax] 0.4 mg PO DAILY #10 cap 04/26/17 Bisacodyl [Dulcolax] 10 mg PO ONCE #2 tablet. 05/05/17 Lactulose 20 gm PO DAILY PRN #14 ml 05/05/17 Allergies Allergy/AdvReac Type Severity Reaction Status Date / Time No Known Allergies Allergy Verified 05/05/17 13:00 Review of Systems ROS Statement: Those systems with pertinent positive or pertinent negative responses have been documented in the HPI. ROS Other: All systems not noted in ROS Statement are negative. (ROS gathered from the patient's relatives) Limitations: ROS unobtainable due to patients medical condition (AAOx1 (this is the patient's baseline)) Constitutional: Denies: fever, chills Respiratory: Denies: cough, dyspnea, wheezes, hemoptysis, stridor Cardiovascular: Denies: chest pain Endocrine: Reports: fatigue Gastrointestinal: Reports: abdominal pain, constipation. Denies: nausea, vomiting, diarrhea Genitourinary: Denies: hematuria, discharge Musculoskeletal: Denies: back pain Skin: Denies: rash, lesions, change in color Neurological: Denies: headache, weakness Psychiatric: Denies: anxiety, depression Past Medical History Past Medical History: Dementia Additional Past Medical History / Comment(s): UTI, hepatitis B 40 years ago, non verbal 4 years, colonoscopies, incontinence, diverticulitis, urinary retention History of Any Multi-Drug Resistant Organisms: None Reported Past Surgical History: Appendectomy, Bladder Surgery Past Psychological History: No Psychological Hx Reported Smoking Status: Former smoker Past Alcohol Use History: Abuse Past Drug Use History: None Reported General Exam Limitations: altered mental status, physical limitation General appearance: alert, in no apparent distress Head exam: Present: atraumatic, normocephalic Eye exam: Present: normal appearance, PERRL Pupils: Present: normal accommodation ENT exam: Present: normal exam, mucous membranes dry Neck exam: Present: normal inspection, full ROM Respiratory exam: Present: normal lung sounds bilaterally. Absent: respiratory distress, wheezes, rales, rhonchi, stridor, chest wall tenderness Cardiovascular Exam: Present: regular rate, normal rhythm. Absent: bradycardia , tachycardia GI/Abdominal exam: Present: soft, other (minimal stool palpable in the rectal vault. Normal rectal tone). Absent: distended, tenderness, guarding, rebound Rectal exam: Present: normal rectal tone, prostate enlargement. Absent: prostate tenderness Extremities exam: Present: normal inspection, full ROM Back exam: Present: normal inspection Neurological exam: Present: alert (oriented x 1 (this is the patient's baseline) ) Psychiatric exam: Present: normal affect, normal mood Skin exam: Present: warm, dry, intact Course Vital Signs 05/05/17 05/05/17 11:38 14:29 Temperature 98.0 F 97.8 F Pulse Rate 81 83 Respiratory 20 18 Rate Blood Pressure 150/72 143/69 O2 Sat by Pulse 96 100 Oximetry Medical Decision Making - Medical Decision Making Recent is a 76-year-old male who presents to ED with a chief complaint of constipation. Patient has had these symptoms over the course the past 4 days. Patient has failed outpatient treatment with enemas, Dulcolax, and docusate. As such, patient was directed to come to the ED for further evaluation. He has no stool noted on examination the rectal vault. Will order acute abdominal series to exam on for fecal impaction. 2:11 PM The patient's is noted to have only a minimal amount of stool in the rectum. There is a minimal amount of stool present throughout the entire colon. There is evidence of old pills within the colon. I suspect poor transit of stool. I have counseled the patient and his family to consume more water as this will help to improve the flow of stool. It will also help for the patient to have more regular bowel movements. The patient will be discharged with a prescription for lactulose to use when necessary. The patient will also be discharged with a prescription for Dulcolax 10mg suppository to use when he arrives home. I have encouraged the patient and his family to follow up with their PCP for further evaluation. I've answered all their questions to the satisfaction. Disposition Clinical Impression: Chronic constipation Disposition: HOME SELF-CARE Condition: Good Instructions: Laxative, Stimulant (By mouth), Lactulose (By mouth), Constipation (ED) Additional Instructions: Please follow-up with your primary care physician regarding the symptoms that brought you into the ED today. They can help to monitor your constipation and ensure that it is improving. Please use lactulose daily until you start to have regular bowel movements. You may cut down on this medication once you are having regular bowel movements. I've also provided you with a medication called Dulcolax to help you have a bowel movement today. This is a suppository. Please return to the ED should your symptoms worsen. Prescriptions: Bisacodyl [Dulcolax] 10 mg PO ONCE #2 tablet. Lactulose 20 gm PO DAILY PRN #14 ml PRN Reason: Constipation Referrals: Marisel Bob DO [Primary Care Provider] - 05/12/17 (Please follow up with Dr. Bob within the next week regarding your visit to the ED today) Time of Disposition: 14:11
[2017-05-05 14:30] VITALS: BP 143/69; PULSE 83; RESP 18; TEMP 97.8
== END 2017-05-05 14:30 | disposition home or self-care (01) ==
LOC: EC 11:19
DX: K59.09 Other constipation (principal); N40.0 Benign prostatic hyperplasia without lower urinary tract symptoms; R41.82 Altered mental status, unspecified; Z87.891 Personal history of nicotine dependence
CPT/HCPCS: 74000; 99284

== ENCOUNTER 2017-06-30 11:54 | Inpatient (IN) | payer MEDICARE ==
[2017-06-30] MEDS ORDERED: SODIUM CHLORIDE 0.9% 1,000 ML IV ONE ×2 (12:27→13:23)
--- NOTE | 2017-06-30 12:29 | ED ---
General Adult HPI - General Chief complaint: Urogenital Stated complaint: unable to urinate Time Seen by Provider: 06/30/17 12:05 Source: family, RN notes reviewed Mode of arrival: wheelchair Limitations: physical limitation - History of Present Illness Initial comments: This is a 76-year-old male who presents emergency Department with a past medical history significant for urinary incontinence. According to the a Thakur catheter was placed by urology because he has complete blood or dysfunction. brings patient in today because he has not had any urinary output since yesterday and he is not drinking any fluids for the last couple of days. states his mental status has not changed and he has been unable to converse with her for years. She does not look to be in any distress according to the . Patient had no difficult breathing there's been no vomiting but no diarrhea. states he wanted to drink water. Patient had a fever on Tuesday of 101 according to the but has not had a fever since. Patient can give no history whatsoever. - Related Data Home Medications Medication Instructions Recorded Confirmed Acetaminophen [Children's Tylenol] 320 mg PO Q6HR PRN 06/30/17 06/30/17 Donepezil [Aricept] 10 mg PO DAILY 06/30/17 06/30/17 Levothyroxine Sodium [Synthroid] 50 mcg PO DAILY 06/30/17 06/30/17 Memantine [Namenda] 10 mg PO BID 06/30/17 06/30/17 Previous Rx's Medication Instructions Recorded Tamsulosin HCl [Flomax] 0.4 mg PO DAILY #10 cap 04/26/17 Allergies Allergy/AdvReac Type Severity Reaction Status Date / Time No Known Allergies Allergy Verified 06/30/17 12:20 Review of Systems ROS Statement: Those systems with pertinent positive or pertinent negative responses have been documented in the HPI. ROS Other: All systems not noted in ROS Statement are negative. Past Medical History Past Medical History: Dementia Additional Past Medical History / Comment(s): UTI, hepatitis B 40 years ago, non verbal 4 years, colonoscopies, incontinence, diverticulitis, urinary retention History of Any Multi-Drug Resistant Organisms: None Reported Past Surgical History: Appendectomy, Bladder Surgery Past Psychological History: No Psychological Hx Reported Smoking Status: Former smoker Past Alcohol Use History: Abuse Past Drug Use History: None Reported General Exam - General Exam Comments Initial Comments: GENERAL: Patient is well-developed and patient appears cachectic. Patient is nontoxic and well-hydrated and is in no acute distress. ENT: Neck is soft and supple. No significant lymphadenopathy is noted. Oropharynx is clear. Moist mucous membranes. Neck has full range of motion without eliciting any pain. EYES: The sclera were anicteric and conjunctiva were pink and moist. Extraocular movements were intact and pupils were equal round and reactive to light. Eyelids were unremarkable. PULMONARY: Unlabored respirations. Good breath sounds bilaterally. No audible rales rhonchi or wheezing was noted. CARDIOVASCULAR: There is a regular rate and rhythm without any murmurs gallops or rubs. ABDOMEN: Soft and nontender with normal bowel sounds. No palpable organomegaly was noted. There is no palpable pulsatile mass. SKIN: Skin is clear with no lesions or rashes and otherwise unremarkable. NEUROLOGIC: Patient is alert and patient is not oriented at all. Cranial nerves II through XII are grossly intact. MUSCULOSKELETAL: Normal extremities with adequate strength and full range of motion. No lower extremity swelling or edema. No calf tenderness. LYMPHATICS: No significant lymphadenopathy is noted PSYCHIATRIC: Unable to assess Limitations: physical limitation Course Vital Signs 06/30/17 06/30/17 12:07 13:09 Temperature 97.5 F L Pulse Rate 78 84 Respiratory 20 20 Rate Blood Pressure 144/74 173/87 O2 Sat by Pulse 95 97 Oximetry Medical Decision Making - Medical Decision Making I spoke with Dr. Rascon wanted the patient agreed to admit the patient I started the patient on Rocephin for the urinary tract infection. And I wrote admitting orders. - Lab Data Result diagrams: 06/30/17 12:30 06/30/17 12:30 Lab Results 06/30/17 06/30/17 06/30/17 Range/Units 12:30 12:30 13:00 WBC 5.3 (3.8-10.6) k/uL RBC 4.38 (4.30-5.90) m/uL Hgb 13.6 (13.0-17.5) gm/dL Hct 42.1 (39.0-53.0) % MCV 96.2 (80.0-100.0) fL MCH 31.0 (25.0-35.0) pg MCHC 32.2 (31.0-37.0) g/dL RDW 14.7 (11.5-15.5) % Plt Count 437 (150-450) k/uL Neutrophils % 67 % Lymphocytes % 26 % Monocytes % 4 % Eosinophils % 1 % Basophils % 0 % Neutrophils # 3.5 (1.3-7.7) k/uL Lymphocytes # 1.4 (1.0-4.8) k/uL Monocytes # 0.2 (0-1.0) k/uL Eosinophils # 0.0 (0-0.7) k/uL Basophils # 0.0 (0-0.2) k/uL Sodium 137 (137-145) mmol/L Potassium 4.3 (3.5-5.1) mmol/L Chloride 106 (98-107) mmol/L Carbon Dioxide 23 (22-30) mmol/L Anion Gap 8 mmol/L BUN 19 (9-20) mg/dL Creatinine 1.01 (0.66-1.25) mg/dL Est GFR (MDRD) Af Amer >60 (>60 ml/min/1.73 sqM) Est GFR (MDRD) Non-Af >60 (>60 ml/min/1.73 sqM) Glucose 101 H (74-99) mg/dL Calcium 8.9 (8.4-10.2) mg/dL Total Bilirubin 0.7 (0.2-1.3) mg/dL AST 26 (17-59) U/L ALT 39 (21-72) U/L Alkaline Phosphatase 124 (38-126) U/L Total Protein 7.4 (6.3-8.2) g/dL Albumin 3.9 (3.5-5.0) g/dL Urine Color Yellow Urine Appearance Cloudy (Clear) Urine pH 7.5 (5.0-8.0) Ur Specific Motley 1.015 (1.001-1.035) Urine Protein Trace H (Negative) Urine Glucose (UA) Negative (Negative) Urine Ketones Negative (Negative) Urine Blood Trace H (Negative) Urine Nitrite Negative (Negative) Urine Bilirubin Negative (Negative) Urine Urobilinogen <2.0 (<2.0) mg/dL Ur Leukocyte Esterase Large H (Negative) Urine RBC 6 H (0-5) /hpf Urine WBC 33 H (0-5) /hpf Amorphous Sediment Rare H (None) /hpf Urine Bacteria Occasional H (None) /hpf Urine Mucus Rare H (None) /hpf Disposition Clinical Impression: Urinary tract infection Disposition: ADMITTED IP TO THIS HOSP Referrals: Marisel Bob DO [Primary Care Provider] - 1-2 days Time of Disposition: 13:23
[2017-06-30 12:50] LABS: Basophils % (A) 0 %; CH 31.7; CHCM 33.1; Eosinophils % (A) 1 %; HCT 42.1 % (39.0-53.0); HGB 13.6 gm/dL (13.0-17.5); Luc # (Auto) 0.08; Luc % (Auto) 2; Lymphocytes # (A) 1.4 k/uL (1.0-4.8); Lymphocytes % (A) 26 %; MCHC 32.2 g/dL (31.0-37.0); MCV 96.2 fL (80.0-100.0); Mean Platelet Volume 6.6; Monocytes # (A) 0.2 k/uL (0-1.0); Monocytes % (A) 4 %; Neutrophils # (A) 3.5 k/uL (1.3-7.7); Neutrophils % (A) 67 %; RBC 4.38 m/uL (4.30-5.90); RDW 14.7 % (11.5-15.5); WBC 5.3 k/uL (3.8-10.6); WBC (Perox) 5.31
[2017-06-30 13:09] LABS: ALT 39 U/L (21-72); AST 26 U/L (17-59); Alkaline Phosphatase 124 U/L (38-126); Anion Gap 8 mmol/L; Blood Urea Nitrogen 19 mg/dL (9-20); Calcium 8.9 mg/dL (8.4-10.2); Carbon Dioxide 23 mmol/L (22-30); Chloride 106 mmol/L (98-107); Glucose 101 mg/dL (74-99); Non-African American GFR(MDRD) >60 (>60 ml/min/1.73 sqM); Sodium 137 mmol/L (137-145); Total Bilirubin 0.7 mg/dL (0.2-1.3); Total Protein 7.4 g/dL (6.3-8.2)
[2017-06-30 13:11] LABS: Amorphous Sediment,Urine Rare /hpf; Appearance,Urine Cloudy (Clear); Bacteria,Urine Occasional /hpf; Bilirubin,Urine Negative (Negative); Glucose,Urine (UA) Negative (Negative); Ketones,Urine Negative (Negative); Leukocyte Esterase,Urine Large (Negative); Mucus,Urine Rare /hpf; Nitrite,Urine Negative (Negative); PH, Urine 7.5 (5.0-8.0); Particle Count 113618; Protein,Urine Trace (Negative); RBC,Urine 6 /hpf (0-5); Specific Gravity,Urine 1.015 (1.001-1.035); UA Billing (MACRO vs. MICRO) MICRO; Urobilinogen,Urine <2.0 mg/dL (<2.0); WBC,Urine 33 /hpf (0-5)
[2017-06-30 13:14] LABS: Potassium 4.3 mmol/L (3.5-5.1)
[2017-06-30] MEDS ORDERED: ACETAMINOPHEN ORAL SUSP 160 MG/5 ML CUP PO PRN (19:12)
[2017-06-30] MEDS ORDERED: ALPRAZolam 0.25 MG TAB PO PRN (19:15)
[2017-06-30] MEDS: MEMANTINE 10 MG TAB PO SCH (21:13)
[2017-06-30] MEDS: MELATONIN 3 MG TABLET PO SCH (21:13)
[2017-07-01] MEDS: LEVOTHYROXINE 50 MCG TAB PO SCH (06:51)
[2017-07-01] MEDS: MEMANTINE 10 MG TAB PO SCH ×2 (07:31→21:06)
[2017-07-01] MEDS ORDERED: DONEPEZIL 10 MG TAB PO SCH (09:00)
[2017-07-01] MEDS ORDERED: TAMSULOSIN 0.4 MG CAP.ER.24H PO SCH (09:00)
[2017-07-01 09:22] LABS: Basophils % (A) 0 %; CH 31.8; CHCM 32.7; Eosinophils # (A) 0.1 k/uL (0-0.7); Eosinophils % (A) 2 %; HCT 36.8 % (39.0-53.0); HDW 2.44; HGB 11.6 gm/dL (13.0-17.5); Luc # (Auto) 0.08; Luc % (Auto) 2; Lymphocytes # (A) 1.2 k/uL (1.0-4.8); Lymphocytes % (A) 27 %; MCH 30.7 pg (25.0-35.0); MCHC 31.5 g/dL (31.0-37.0); MCV 97.5 fL (80.0-100.0); Mean Platelet Volume 6.8; Monocytes # (A) 0.2 k/uL (0-1.0); Monocytes % (A) 5 %; Neutrophils # (A) 2.9 k/uL (1.3-7.7); Neutrophils % (A) 64 %; RBC 3.77 m/uL (4.30-5.90); RDW 14.6 % (11.5-15.5); WBC 4.5 k/uL (3.8-10.6); WBC (Perox) 4.57
[2017-07-01 09:43] LABS: Anion Gap 6 mmol/L; Blood Urea Nitrogen 15 mg/dL (9-20); Calcium 8.5 mg/dL (8.4-10.2); Carbon Dioxide 22 mmol/L (22-30); Chloride 109 mmol/L (98-107); Glucose 103 mg/dL (74-99); Non-African American GFR(MDRD) >60 (>60 ml/min/1.73 sqM); Potassium 4.3 mmol/L (3.5-5.1); Sodium 137 mmol/L (137-145)
--- NOTE | 2017-07-01 10:22 | HP ---
DATE OF CONSULTATION: 06/30/2017 The chief complaints are inability to urinate and UTI. HISTORY OF PRESENT ILLNESS: This is a 76-year-old gentleman with a past medical history of multiple medical problems including history of dementia, UTI , hepatitis, history of appendectomy being followed by Dr. Bob in the outpatient setting. Taken to [facility] because of the blocked catheter. The patient was previously admitted to the hospital with UTI with sepsis and change in mental status, also. The patient was barely verbal and catheter was changed and the patient has features of UTI. Patient was started on antibiotics. Patient was monitored closely. Patient unable to history, mostly taken by discussion with staff and chart submitted. PAST MEDICAL HISTORY: History of dementia, UTI, hepatitis B. Medications prior to admission include: 1. Children's Tylenol 320 mg p.o. q.6 p.r.n. 2. Flomax 0.4 daily. 3. Namenda 10 mg b.i.d. 4. Synthroid 50 mcg p.o. daily. 5. Aricept 10 mg daily. Allergies are none. FAMILY HISTORY: No history of heart disease or strokes in the family. SOCIAL HISTORY: Previous history of smoking, EtOH abuse also. REVIEW OF SYSTEMS: Could not be taken. PHYSICAL EXAM: Patient is conscious but minimally verbal and disoriented. Pulse 82, blood pressure 160/83, respirations 17, temperature is 97.8, pulse ox 99% on room air. HEENT: Conjunctivae normal. NECK: No jugular venous distension. CARDIOVASCULAR SYSTEM: S1, S2, muffled. RESPIRATORY: Breath sounds diminished at the bases, no rhonchi, no crackles. ABDOMEN: Soft, nontender, no mass palpable. LEGS: No edema, no swelling. NERVOUS SYSTEM: Higher functions as mentioned, moves all 4 limbs, no focal deficits. SKIN: No ulcer, rash bleeding. Labs are CBC within normal limits. Glucose 101, UA noted. ASSESSMENT: 1. Possible urinary tract infection. 2. Blocked Thakur catheter. 3. Dementia. 4. Urinary tract infection. 5. Chronic indwelling Thakur catheter. 6. Gait dysfunction. 7. Cerebrovascular accident, transient ischemic attack. 8. Remote history of ethyl alcohol. 9. History of nicotine dependence. 10. Severe protein calorie malnutrition with body mass index of 18.6. 11. NO CODE, NO CARDIOPULMONARY RESUSCITATION, NO VENTILATOR. RECOMMENDATION AND DISCUSSION: Recommend to continue with the monitoring and symptomatic treatment, otherwise, at this time I would recommend continue with empiric IV antibiotics, closely monitor. PT, OT evaluation. Otherwise, assume the home medication, guarded prognosis. Further recommendations to follow. Will obtain urine cultures and blood cultures. A copy of this will be forwarded to Dr. Bob who is the primary physician. EVELYN
[2017-07-01] MEDS: MULTIVITAMINS, THERA 1 EACH TAB PO SCH (11:08)
[2017-07-01 11:32] VITALS: BMI 18.6
[2017-07-01] MEDS: MELATONIN 3 MG TABLET PO SCH (21:06)
[2017-07-02] MEDS: LEVOTHYROXINE 50 MCG TAB PO SCH (05:51)
[2017-07-02 07:49] LABS: Basophils % (A) 0 %; CH 31.7; CHCM 31.9; Eosinophils # (A) 0.1 k/uL (0-0.7); Eosinophils % (A) 1 %; HCT 43.5 % (39.0-53.0); HDW 2.42; HGB 13.3 gm/dL (13.0-17.5); Luc # (Auto) 0.14; Luc % (Auto) 2; Lymphocytes # (A) 1.8 k/uL (1.0-4.8); Lymphocytes % (A) 31 %; MCH 30.6 pg (25.0-35.0); MCHC 30.7 g/dL (31.0-37.0); MCV 99.6 fL (80.0-100.0); Macrocytosis Slight; Mean Platelet Volume 6.8; Monocytes # (A) 0.3 k/uL (0-1.0); Monocytes % (A) 6 %; Neutrophils # (A) 3.6 k/uL (1.3-7.7); Neutrophils % (A) 60 %; RBC 4.36 m/uL (4.30-5.90); RDW 14.8 % (11.5-15.5); WBC 5.9 k/uL (3.8-10.6); WBC (Perox) 5.68
[2017-07-02 08:26] LABS: Anion Gap 8 mmol/L; Blood Urea Nitrogen 16 mg/dL (9-20); Calcium 8.7 mg/dL (8.4-10.2); Carbon Dioxide 23 mmol/L (22-30); Chloride 106 mmol/L (98-107); Glucose 86 mg/dL (74-99); Non-African American GFR(MDRD) >60 (>60 ml/min/1.73 sqM); Potassium 4.3 mmol/L (3.5-5.1); Sodium 137 mmol/L (137-145)
[2017-07-02] MEDS: MEMANTINE 10 MG TAB PO SCH ×2 (08:47→20:47)
[2017-07-02] MEDS: MULTIVITAMINS, THERA 1 EACH TAB PO SCH (11:40)
--- NOTE | 2017-07-02 11:45 | PN ---
DATE OF SERVICE: 07/01/17 This 76-year-old gentleman admitted with weakness, also had UTI with possible sepsis also. The patient is being closely monitored. No fever. No cough. On exam, conscious but disoriented. Pulse 101, blood pressure 130/69. Respiratory rate 16. Temperature 98.9 degrees. Pulse ox 95% on room air. HEENT: Conjunctivae normal. Oral mucosa moist. NECK: no JVD. No carotid bruit, no lymph node enlargement. CARDIOVASCULAR: S1, S2 muffled. RESPIRATORY: Breath sounds diminished at the bases. A few rhonchi and no crackles. Abdomen is soft. Nontender. LEGS: No edema. No swelling. Nervous system: No focal deficits. LABS: WBC 4.9, hemoglobin 11.3, UA noted. Culture shows gram negative bacilli. ASSESSMENT: 1. Urinary tract infection with polymicrobial present on admission, due to chronic indwelling Thakur catheter. 2. Blocked Thakur catheter, just changed. 3. Dementia. 4. Urinary tract infection history. 5. Chronic indwelling Thakur catheter. 6. Gait dysfunction. 7. Cerebrovascular accident/transient ischemic attack. 8. Remote history of ETOH. 9. History of nicotine dependence. 10. Severe protein calorie malnutrition. BMI 18.6. 11. NO CODE, NO CPR, NO VENT. RECOMMENDATIONS AND DISCUSSION: Continue the current medications. Continue with monitoring and symptomatic treatment. Otherwise, monitor the patient hemoglobin closely. Await final ID of the organism. PT/OT evaluation. Possible ECF rehab. Prognosis guarded. Further recommendations to follow. SUED
[2017-07-02] MEDS: MELATONIN 3 MG TABLET PO SCH (20:47)
[2017-07-03 09:52] LABS: Basophils % (A) 0 %; CH 31.8; CHCM 32.7; Eosinophils # (A) 0.1 k/uL (0-0.7); Eosinophils % (A) 1 %; HCT 38.6 % (39.0-53.0); HDW 2.41; HGB 12.2 gm/dL (13.0-17.5); Luc # (Auto) 0.12; Luc % (Auto) 2; Lymphocytes % (A) 32 %; MCHC 31.7 g/dL (31.0-37.0); MCV 97.8 fL (80.0-100.0); Mean Platelet Volume 6.8; Monocytes # (A) 0.3 k/uL (0-1.0); Monocytes % (A) 6 %; Neutrophils # (A) 3.6 k/uL (1.3-7.7); Neutrophils % (A) 59 %; RBC 3.95 m/uL (4.30-5.90); WBC 6.2 k/uL (3.8-10.6); WBC (Perox) 6.09
[2017-07-03 10:11] LABS: Anion Gap 5 mmol/L; Blood Urea Nitrogen 19 mg/dL (9-20); Calcium 8.7 mg/dL (8.4-10.2); Carbon Dioxide 25 mmol/L (22-30); Chloride 107 mmol/L (98-107); Glucose 88 mg/dL (74-99); Non-African American GFR(MDRD) >60 (>60 ml/min/1.73 sqM); Potassium 4.3 mmol/L (3.5-5.1); Sodium 137 mmol/L (137-145)
--- NOTE | 2017-07-03 11:44 | PN ---
DATE OF SERVICE: 07/02/17 This 76-year-old gentleman was admitted with UTI, with polymicrobial infection, also had chronic indwelling Thakur catheter. The patient had generalized weakness and tiredness. The patient was scheduled at [facility] on Tuesday. The patient is minimally verbally. PHYSICAL EXAMINATION: The patient is minimally verbal and oriented times one only. Pulse 90. Blood pressure 130/60. Respiratory rate 16. Temperature 99.4. Pulse ox 91% on room air. HEENT: Conjunctivae normal. NECK: No JVD. CARDIOVASCULAR: S1. S2 muffled. RESPIRATORY: Breath sounds diminished at the bases. No rhonchi and no crackles. ABDOMEN: Soft. Nontender. LEGS: No edema. No swelling. NERVOUS SYSTEM: No focal deficits. LABS: WBC 5.2, Hemoglobin 13.3, UA are noted. Cultures show gram negative bacilli one in two. ASSESSMENT: 1. Urinary tract infection, polymicrobial, present on admission due to chronic indwelling Thakur catheter. 2. Blocked Thakur catheter, just changed. 3. Dementia. 4. Urinary tract infection history. 5. Chronic indwelling Thakur catheter. 6. Gait dysfunction. 7. Cerebrovascular accident/transient ischemic attack. 8. Remote history of ETOH. RECOMMENDATIONS AND DISCUSSION: Continue the current medications, continue with monitoring, symptomatic treatment. Otherwise at this time, monitor the patient closely. Guarded prognosis. PT/OT evaluation. Further recommendations to follow. Possible ECF rehab. EVELYN
[2017-07-03] MEDS: LEVOTHYROXINE 50 MCG TAB PO SCH (12:36)
[2017-07-03] MEDS: MEMANTINE 10 MG TAB PO SCH ×2 (12:36→22:31)
[2017-07-03] MEDS: MULTIVITAMINS, THERA 1 EACH TAB PO SCH (13:53)
[2017-07-03] MEDS: MELATONIN 3 MG TABLET PO SCH (22:31)
[2017-07-04] MEDS: LEVOTHYROXINE 50 MCG TAB PO SCH (06:16)
[2017-07-04 09:12] LABS: Basophils % (A) 0 %; CH 31.9; CHCM 32.6; Eosinophils # (A) 0.1 k/uL (0-0.7); Eosinophils % (A) 1 %; HCT 40.7 % (39.0-53.0); HDW 2.36; HGB 12.7 gm/dL (13.0-17.5); Luc # (Auto) 0.12; Luc % (Auto) 2; Lymphocytes # (A) 1.7 k/uL (1.0-4.8); Lymphocytes % (A) 27 %; MCH 30.8 pg (25.0-35.0); MCHC 31.3 g/dL (31.0-37.0); MCV 98.5 fL (80.0-100.0); Mean Platelet Volume 6.8; Monocytes # (A) 0.4 k/uL (0-1.0); Monocytes % (A) 6 %; Neutrophils % (A) 64 %; RBC 4.13 m/uL (4.30-5.90); RDW 15.1 % (11.5-15.5); WBC 6.3 k/uL (3.8-10.6); WBC (Perox) 6.78
[2017-07-04 09:20] LABS: Anion Gap 9 mmol/L; Blood Urea Nitrogen 20 mg/dL (9-20); Carbon Dioxide 27 mmol/L (22-30); Chloride 104 mmol/L (98-107); Glucose 121 mg/dL (74-99); Non-African American GFR(MDRD) >60 (>60 ml/min/1.73 sqM); Potassium 4.1 mmol/L (3.5-5.1); Sodium 140 mmol/L (137-145)
[2017-07-04] MEDS: MEMANTINE 10 MG TAB PO SCH ×2 (09:33→21:31)
[2017-07-04] MEDS: MULTIVITAMINS, THERA 1 EACH TAB PO SCH (09:33)
--- NOTE | 2017-07-04 10:58 | XR ---
EXAMINATION TYPE: XR chest 1V portable DATE OF EXAM: 07/04/2017 COMPARISON: 04/20/2017 HISTORY: ECF placement TECHNIQUE: Single frontal view of the chest is obtained. FINDINGS: There is no focal air space opacity, pleural effusion, or pneumothorax seen. The cardiac silhouette size is within normal limits. The osseous structures are intact. Large hernia noted. IMPRESSION: 1. Large hernia. Likely hiatal hernia. Diaphragmatic hernia not excluded.
--- NOTE | 2017-07-04 13:27 | PN ---
DATE OF SERVICE: 07/03/2017 This is a 76-year-old gentleman who was admitted with UTI which is polymicrobial secondary to chronic indwelling Thakur catheter is being closely monitored. No chest pain or palpitation, no fever. On exam, patient is confused, minimally verbal, pulse is 68, blood pressure 128/ 67, respirations 14, temperature is 97.0, pulse ox 97% on room air. HEENT: Conjunctivae normal. NECK: No jugular venous distension. CARDIOVASCULAR: S1, S2, muffled. RESPIRATORY: Breath sounds diminished at the bases, a few scattered rhonchi. ABDOMEN: Soft. NERVOUS SYSTEM: Diffusely weak. LABS: WBC is 6.8, hemoglobin is 12.2. The cultures are Enterobacter cloacae and Citrobacter freundii. ASSESSMENT: 1. Urinary tract infection with Enterobacter cloacae and Citrobacter freundii, present on admission secondary to indwelling Thakur catheter. 2. Blocked Thakur catheter, just changed. 3. Dementia. 4. Urinary tract infection history. 5. Gait dysfunction. 6. History of cerebrovascular accident/transient ischemic attack. 7. Remote history of ethyl alcohol. RECOMMENDATION: Recommend to continue with the current medication. Continue with the symptomatic treatment. Continue with antibiotics, otherwise, at this time PT, OT evaluation, possible ECF rehab. Further recommendations to follow. MTDD
--- NOTE | 2017-07-04 16:59 | P.PN ---
Subjective This is a 76-year-old gentleman that comes into the hospital with the a chronic Thakur due to urinary retention. Patient apparently at baseline is very minimally verbal Patient comes in to the hospital was noted to have a fever was also noted to have polymicrobial organisms concerning for change in mental status is at Patient apparently has had multiple falls at home he used to live with his . With the increase in ADLs support patient was monitored with antibiotic therapy was admitted for evaluation Objective - Vital Signs Vital signs: Vital Signs Temp 100.0 F H 07/04/17 14:41 Pulse 100 07/04/17 14:41 Resp 22 07/04/17 14:41 BP 140/66 07/04/17 14:41 Pulse Ox 95 07/04/17 14:41 Intake & Output 07/03/17 07/04/17 07/04/17 18:59 06:59 18:59 Intake Total 500 776 Output Total 850 500 Balance -350 276 Intake: Oral 500 776 Output: Urine 850 500 Other: Voiding Method Indwelling Catheter Indwelling Catheter Indwelling Catheter # Voids 550 # Bowel Movements 1 1 - Exam Gen. appearance apparently at his baseline Lungs clear to auscultation or rhonchi or wheezing. Heart S1-S2 heard regular rate and rhythm Abdomen is soft A Thakur catheter is noted Neuro moves all 4 extremities however is nonverbal. - Labs CBC & Chem 7: 07/04/17 08:25 07/04/17 08:23 Labs: Abnormal Lab Results - Last 24 Hours (Table) 07/04/17 07/04/17 Range/Units 08:23 08:25 RBC 4.13 L (4.30-5.90) m/uL Hgb 12.7 L (13.0-17.5) gm/dL Glucose 121 H (74-99) mg/dL Microbiology - Last 24 Hours (Table) 06/30/17 19:32 Blood Culture - Preliminary Blood No Growth after 72 hours Assessment and Plan Plan: #1 recent falls secondary to a urinary tract infection #2 dementia #3 history of CVA #4 urinary retention with chronic Thakur catheter Plan Patient is requiring significant ADL support and with multiple falls and no help at home patient will initially be evaluated today ECF for sure. Continue Thakur catheter which was changed on 06/30/2017 Will likely not need any and IV antibiotics we'll discharge patient completed course of 10 days on oral ABX.
[2017-07-04] MEDS: MELATONIN 3 MG TABLET PO SCH (21:31)
[2017-07-05] MEDS: LEVOTHYROXINE 50 MCG TAB PO SCH (06:15)
[2017-07-05] MEDS: MEMANTINE 10 MG TAB PO SCH ×2 (07:41→20:02)
[2017-07-05] MEDS: MULTIVITAMINS, THERA 1 EACH TAB PO SCH (07:41)
[2017-07-05 08:37] LABS: Basophils % (A) 0 %; CH 31.3; CHCM 32.3; Eosinophils # (A) 0.1 k/uL (0-0.7); Eosinophils % (A) 2 %; HCT 39.1 % (39.0-53.0); HDW 2.35; HGB 12.5 gm/dL (13.0-17.5); Luc # (Auto) 0.11; Luc % (Auto) 2; Lymphocytes # (A) 1.6 k/uL (1.0-4.8); Lymphocytes % (A) 27 %; MCH 31.1 pg (25.0-35.0); MCHC 31.9 g/dL (31.0-37.0); MCV 97.4 fL (80.0-100.0); Mean Platelet Volume 6.6; Monocytes # (A) 0.5 k/uL (0-1.0); Monocytes % (A) 8 %; Neutrophils # (A) 3.7 k/uL (1.3-7.7); Neutrophils % (A) 61 %; RBC 4.01 m/uL (4.30-5.90); RDW 14.4 % (11.5-15.5); WBC 6.1 k/uL (3.8-10.6); WBC (Perox) 6.17
[2017-07-05 09:09] LABS: Anion Gap 7 mmol/L; Blood Urea Nitrogen 23 mg/dL (9-20); Calcium 8.8 mg/dL (8.4-10.2); Carbon Dioxide 26 mmol/L (22-30); Chloride 107 mmol/L (98-107); Glucose 96 mg/dL (74-99); Non-African American GFR(MDRD) >60 (>60 ml/min/1.73 sqM); Potassium 4.2 mmol/L (3.5-5.1); Sodium 140 mmol/L (137-145)
--- NOTE | 2017-07-05 12:48 | P.DS ---
Providers Date of admission: 07/04/17 15:37 Attending physician: Kwasi Branch MD Primary care physician: Marisel Lisbeth [facility] Course: This is a 76-year-old gentleman that comes into the hospital with the a chronic Thakur due to urinary retention. Patient apparently at baseline is very minimally verbal Patient comes in to the hospital was noted to have a fever was also noted to have polymicrobial organisms concerning for change in mental status is at Patient apparently has had multiple falls at home he used to live with his . With the increase in ADLs support patient was monitored with antibiotic therapy was admitted for evaluation 07/05/17 no change - Exam Gen. appearance apparently at his baseline Lungs clear to auscultation or rhonchi or wheezing. Heart S1-S2 heard regular rate and rhythm Abdomen is soft A Thakur catheter is noted Neuro moves all 4 extremities however is nonverbal. Assessment and Plan Plan: #1 recent falls secondary to a urinary tract infection #2 dementia #3 history of CVA #4 urinary retention with chronic Thakur catheter right eye evidence of conjuctivitis Plan Patient is requiring significant ADL support and with multiple falls and no help at home patient will initially be evaluated today [facility]CF for sure. Continue Thakur catheter which was changed on 06/30/2017 ceftin for 2 more days dc to snf on opth cipro appears to have lacrimal duct obstruction Plan - Discharge Summary New Discharge Prescriptions: New Cefuroxime [Ceftin] 250 mg PO BID #4 tablet Melatonin 3 mg PO HS tab Ciprofloxacin Ophth Soln [Cipro 0.3% Ophth Soln] 1 drops RIGHT EYE Q4HR #1 bottle Continue Tamsulosin HCl [Flomax] 0.4 mg PO DAILY #10 cap Memantine [Namenda] 10 mg PO BID Levothyroxine Sodium [Synthroid] 50 mcg PO DAILY Donepezil [Aricept] 10 mg PO DAILY Acetaminophen [Children's Tylenol] 320 mg PO Q6HR PRN PRN Reason: Pain Or Fever > 100.5 Discharge Medication List Tamsulosin HCl [Flomax] 0.4 mg PO DAILY #10 cap 04/26/17 [Rx] Acetaminophen [Children's Tylenol] 320 mg PO Q6HR PRN 06/30/17 [History] Donepezil [Aricept] 10 mg PO DAILY 06/30/17 [History] Levothyroxine Sodium [Synthroid] 50 mcg PO DAILY 06/30/17 [History] Memantine [Namenda] 10 mg PO BID 06/30/17 [History] Cefuroxime [Ceftin] 250 mg PO BID #4 tablet 07/05/17 [Rx] Ciprofloxacin Ophth Soln [Cipro 0.3% Ophth Soln] 1 drops RIGHT EYE Q4HR #1 bottle 07/05/17 [Rx] Melatonin 3 mg PO HS tab 07/05/17 [Rx] Follow up Appointment(s)/Referral(s): Marisel Bob DO [Primary Care Provider] - 1-2 days Discharge Disposition: TRANSFER TO SNF/ECF
--- NOTE | 2017-07-05 15:16 | CDI ---
In responding to this query, please exercise your independent professional judgment. The [facility] Coding Staff and Clinical Documentation Specialists appreciate your assistance in clarifying documentation, maintaining compliance with coding guidelines, accurately documenting patients condition and capturing severity of illness. The fact that a question is asked does not imply that any particular answer is desired or expected. Communication forms are a method of clarifying documentation and are not made part of the Legal Health Record. Thank you in advance for your clarification. Last Revision, September 2015 Braulio Watt [address] [place] [address] Documentation Clarification Form Date: 07/05/2017 3:09:00 PM From: Dara Cristobal CCS, CCDS Admit Date: 07/04/2017 3:37:00 PM Patient Name: Boris Torres Visit Number: [id number] Discharge Date: Dr. Kwasi Branch: A diagnosis of UTI due to chronic Thakur catheter with blockage, now changed was been documented in the admitting/attending physician progress note of 07/03, noted to be present on admission. History/Risk factors: UTIs, Urinary incontinence & retention, nonverbal for several years, dementia. Clinical Indicators: Patient was admitted from home. Had a Thakur catheter placed by urology recently due to incontinence & retention Urinalysis: Cloudy, tr protein, tr blood, Lg Esterase, WBC 33. Urine culture: Final: Enterobacter cloacae, Citrobacter freundii Treatment: IV fluid bolus, IV fluid rate 100, IV Rocephin In your professional opinion, can you please clarify the etiology of the UTI, if known and was it present on admission? Thakur catheter Suprapubic catheter UTI not related to catheter/urostomy Other condition, please specify Unable to determine Please document in your progress notes and discharge summary in order to capture severity of illness and risk of mortality. Include clinical findings that support your diagnosis. FYI: Press F11 to launch patient chart MTDD
--- NOTE | 2017-07-05 15:21 | CDI ---
In responding to this query, please exercise your independent professional judgment. The [facility] Coding Staff and Clinical Documentation Specialists appreciate your assistance in clarifying documentation, maintaining compliance with coding guidelines, accurately documenting patients condition and capturing severity of illness. The fact that a question is asked does not imply that any particular answer is desired or expected. Communication forms are a method of clarifying documentation and are not made part of the Legal Health Record. Thank you in advance for your clarification. Last Revision, September 2015 Braulio Watt [address] [place] [address] Documentation Clarification Form Date: 07/05/2017 3:16:00 PM From: Dara Cristobal Admit Date: 07/04/2017 3:37:00 PM Patient Name: Boris Torres Visit Number: [id number] Discharge Date: Dr. Kwasi Branch: A diagnosis of UTI due to chronic Thakur catheter with blockage, now changed was been documented in the admitting/attending physician progress note of 07/03, noted to be present on admission. Patient has been nonverbal for years. Per the DC Summary, patient has had multiple falls at home & noted to have polymicrobial organisms concerning for change in mental status. History/Risk factors: UTIs, Urinary incontinence & retention & dementia. Clinical Indicators: Patient was admitted from home. Had a Thakur catheter placed by urology recently due to incontinence & retention Urinalysis: Cloudy, tr protein, tr blood, Lg Esterase, WBC 33. Urine culture: Final: Enterobacter cloacae, Citrobacter freundii Treatment: IV fluid bolus, IV fluid rate 100, IV Rocephin, Thakur Catheter changed. In your professional opinion, can you please clarify the specific type of encephalopathy, if known? Metabolic Encephalopathy Toxic Encephalopathy Other, please specify Unable to determine Please document in your progress notes and discharge summary in order to capture severity of illness and risk of mortality. Include clinical findings that support your diagnosis. FYI: Press F11 to launch patient chart. MTDAlphonse
[2017-07-05] MEDS: MELATONIN 3 MG TABLET PO SCH (20:02)
[2017-07-05 23:03] VITALS: RESP 16
[2017-07-06] MEDS: LEVOTHYROXINE 50 MCG TAB PO SCH (06:15)
[2017-07-06] MEDS: MEMANTINE 10 MG TAB PO SCH ×2 (07:47→20:40)
[2017-07-06] MEDS: MULTIVITAMINS, THERA 1 EACH TAB PO SCH (07:48)
--- NOTE | 2017-07-06 13:55 | P.PN ---
Subjective This is a 76-year-old gentleman that comes into the hospital with the a chronic Thakur due to urinary retention. Patient apparently at baseline is very minimally verbal Patient comes in to the hospital was noted to have a fever was also noted to have polymicrobial organisms concerning for change in mental status is at Patient apparently has had multiple falls at home he used to live with his . With the increase in ADLs support patient was monitored with antibiotic therapy was admitted for evaluation 07/06/2017 Patient is stable Is nonverbal No overnight events reported Objective - Vital Signs Vital signs: Vital Signs Temp 96.8 F L 07/06/17 07:00 Pulse 82 07/06/17 08:00 Resp 16 07/06/17 08:00 BP 147/79 07/06/17 07:00 Pulse Ox 95 07/06/17 07:00 Intake & Output 07/05/17 07/06/17 07/06/17 18:59 06:59 18:59 Intake Total 200 Output Total 750 Balance -750 200 Weight 53.977 kg Intake: IV 200 NORMAL SALINE AT 20ML/HR 150 cefTRIAXone 1,000 mg In 50 Sodium Chloride 0.9% 50 ml @ 100 mls/hr IVPB Q24HR [facility] Rx#:[id number] Output: Urine 750 Other: Voiding Method Indwelling Catheter Indwelling Catheter Indwelling Catheter # Bowel Movements 0 1 - Exam Gen. appearance apparently at his baseline Lungs clear to auscultation or rhonchi or wheezing. Heart S1-S2 heard regular rate and rhythm Abdomen is soft A Thakur catheter is noted Neuro moves all 4 extremities however is nonverbal. - Labs CBC & Chem 7: 07/05/17 08:16 07/05/17 08:13 Labs: Microbiology - Last 24 Hours (Table) 06/30/17 19:32 Blood Culture - Preliminary Blood No Growth after 120 hours Assessment and Plan Plan: #1 recent falls secondary to a urinary tract infection with acute metabolic encephalopathy #2 dementia #3 history of CVA #4 urinary retention with chronic Thakur catheter, catheter related UTI Plan Patient is requiring significant ADL support and with multiple falls and no help at home patient will initially be evaluated today EC for sure. Continue Thakur catheter which was changed on 06/30/2017 Will likely not need any and IV antibiotics we'll discharge patient completed course of 10 days on oral ABX. Pending discharge pending approval of antibiotics
[2017-07-06] MEDS: MELATONIN 3 MG TABLET PO SCH (20:40)
[2017-07-07] MEDS: LEVOTHYROXINE 50 MCG TAB PO SCH (06:33)
[2017-07-07 07:40] VITALS: BP 132/71; TEMP 96.2
[2017-07-07] MEDS: MEMANTINE 10 MG TAB PO SCH (08:00)
[2017-07-07 08:53] VITALS: PULSE 71
[2017-07-07] MEDS: MULTIVITAMINS, THERA 1 EACH TAB PO SCH (11:18)
== END 2017-07-07 13:30 | DRG 698 ==
LOC: EC 11:54 → 4MS4W 13:23 → INTOOBSV 13:23 → 4MS4W 07-02 17:47 → OBSVTOIN 07-04 15:37
PROVIDERS: ADMIT Internal Medicine; ATTEND Internal Medicine
DX: T83.511A Infection and inflammatory reaction due to indwelling urethral catheter, initial encounter (principal); E43 Unspecified severe protein-calorie malnutrition; G93.41 Metabolic encephalopathy; Z68.1 Body mass index [BMI] 19.9 or less, adult; N39.0 Urinary tract infection, site not specified; F03.90 Unspecified dementia, unspecified severity, without behavioral disturbance, psychotic disturbance, mood disturbance, and anxiety; B96.89 Other specified bacterial agents as the cause of diseases classified elsewhere; T83.091A Other mechanical complication of indwelling urethral catheter, initial encounter; R29.6 Repeated falls; F10.10 Alcohol abuse, uncomplicated; R32 Unspecified urinary incontinence; R26.9 Unspecified abnormalities of gait and mobility; Z86.73 Personal history of transient ischemic attack (TIA), and cerebral infarction without residual deficits; Z79.899 Other long term (current) drug therapy; Z86.19 Personal history of other infectious and parasitic diseases; Z90.49 Acquired absence of other specified parts of digestive tract; Z87.891 Personal history of nicotine dependence; Z87.440 Personal history of urinary (tract) infections; Y84.6 Urinary catheterization as the cause of abnormal reaction of the patient, or of later complication, without mention of misadventure at the time of the procedure; Y73.8 Miscellaneous gastroenterology and urology devices associated with adverse incidents, not elsewhere classified
CPT/HCPCS: 36415; 51701; 51798; 71010; 80048; 80053; 81001; 85025; 87040; 87077; 87086; 87186